=== PATIENT | male | born 1975 | race African-American/Black ===

== ENCOUNTER 2021-10-27 01:36 | Emergency (ER) | payer OTHER, SELFPAY ==
--- OUTSIDE RECORDS SUMMARY | 2021-10-27 01:39 | XMS REPORT | Continuity of Care Document ---
:1975 Author Organization [facility] t Address [address] [place] [address] Care Team Providers Name Role Phone Edinson Rodarte MD Attending Clinician Edinson RODARTE Attending Clinician Unavailable Doctor Unassigned, Name Attending Clinician Unavailable Problems Condition Condition Condition Status Onset Resolution Last Treating Co mments Source Name Details Category Date Date Treatment Clinician Date No known No known Disease Unive rs active active ity of problems problems [facility] Allergies, Adverse Reactions, Alerts Allergy Allergy Status Severity Reaction(s) Onset Inactive Treating Comm ents Source Name Type Date Date Clinician NO KNOWN Drug Active Univers ALLERGIE Class ity of S [facility] Social History Social Habit Start Date Stop Date Quantity Comments Source History SDGA University o f Alcohol Std [facility] History SDOH University o f Alcohol Binge [facility] Tobacco use and 2020-12-26 2020-12-26 Never used Universit y of exposure 00:00:00 00:00:00 [facility] Alcohol intake 2020-12-26 2020-12-26 Lifetime University of 00:00:00 00:00:00 non-drinker [facility] (finding) Branch History SDOH 2020-12-26 2020-12-26 1 University o f Alcohol Frequency 00:00:00 00:00:00 [facility] edical Branch Sex Assigned At [birth year] Universit y of 00:00:00 00:00:00 [facility] Smoking Status Start Date Stop Date Source Unknown if ever smoked Universit y [facility] Never smoker [facility] Medications Ordered Filled Start Stop Current Ordering Indication Dosage Frequency Signature Comments Components Source Medication Medication Date Date Medication? Clinician (SIG) Name Name No known No [facility] No known No Univers medications [facility] No known No Univers medications [facility] No known No Univers medications [facility] Vital Signs Vital Name Observation Time Observation Value Comments Source Systolic blood 2020-12-26 13:41:00 130 mm[Hg] Univer sity [facility] pressure [facility] Diastolic blood 2020-12-26 13:41:00 84 mm[Hg] [facility] 2020-12-26 13:41:00 73 /min Universi ty [facility] Body height 2020-12-26 13:41:00 172.7 cm Universi ty [facility] Body weight 2020-12-26 13:41:00 [facility] BMI 2020-12-26 13:41:00 36.49 kg/m2 [facility] Procedures Procedure Date / Time Performed Performing Clinician [facility] e REFERRAL- 2020-12-23 05:01:00 Doctor Katarina, No [facility] REQUEST/RESPONSE Name [facility] Encounters Start End Encounter Admission Attending Care Care Encounter Source Date/Time Date/Time Type Type Clinicians Facility Department ID 2020-12-31 2020-12-31 Telephone [place] [facility] [id number] Univers 00:00:00 00:00:00 [facility] [id number] it y of Surgical [id number] Aaron as Specialti [id number] [facility] 2020-12-26 2020-12-26 Office [place] [facility] [id number] Univers 08:28:46 09:09:24 Visit Kirit [facility] [id number] it y of Surgical [id number] Aaron as Specialti [id number] [facility] 2020-12-26 2020-12-26 [facility] [id number] Univers 08:30:00 08:30:00 KIRITGILLIAN bowser [facility] 2020-12-23 2020-12-23 Orders Doctor DIANA [id number] Univers 00:00:00 00:00:00 Only Unassigned, JAVI [id number] ity of [place] [facility] [id number] Aaron as [id number] [facility] 009 Branch Results This patient has no known results.
[2021-10-27 02:14] LABS: Absolute Lymphocytes (CBC) 2.4 K/uL (0.7-4.9); Lymphocytes % 30.6 % (15.3-44.8); MPV 11.3 fL (7.6-11.3); RBC Red Blood Cell Count 5.06 M/uL (4.33-5.43)
[2021-10-27 02:34] LABS: Potassium 4.1 mmol/L (3.5-5.1); Troponin High Sensitivity 12.2 pg/mL (<58.9)
[2021-10-27] MEDS ORDERED: MORPHINE 4 MG/ML SYR ONE (03:17)
[2021-10-27] MEDS ORDERED: NA CHLORIDE 0.9% 1,000 ML ONE (03:17)
[2021-10-27] MEDS ORDERED: ONDANSETRON 4 MG/2 ML VIAL ONE (03:17)
[2021-10-27 06:04] LABS: Urine Blood Negative (Negative); Urine Glucose Negative (Negative); Urine Protein Negative (Negative); Urine Specific Gravity 1.025 (1.005-1.030)
[2021-10-27] MEDS ORDERED: DIAZEPAM 5 MG TABLET ONE (06:29)
[2021-10-27 07:26] LABS: Barbiturates NEGATIVE (NEGATIVE); Benzodiazepines NEGATIVE (NEGATIVE); Cocaine NEGATIVE (NEGATIVE); METHAMPHETAM NEGATIVE (NEGATIVE); Methadone NEGATIVE (NEGATIVE); Opiates NEGATIVE (NEGATIVE); Phencyclidine NEGATIVE (NEGATIVE); THC Cannibis NEGATIVE (NEGATIVE)
--- NOTE | 2021-10-27 08:31 | EDPHYS ---
Physician Documentation [facility] Name: Ricky Mercer Jr Age: 46 yrs Sex: Male : 1975 Arrival Date: 10/27/2021 Time: 01:38 Bed 5 Private MD: ED Physician Michael Ramirez HPI: 10/27 02:30 This 46 yrs old Black Male presents to ER via EMS with complaints of Flank Pain. mh7 02:30 The patient complains of pain in the left low back and right low back. The pain mh7 radiates to the abdomen. Onset: The symptoms/episode began/occurred 2 day(s) ago. Modifying factors: The symptoms are alleviated by nothing. the symptoms are aggravated by movement, palpation/percussion. Associated signs and symptoms: Pertinent negatives: diarrhea, dizziness, dysuria, fever, urinary frequency, headache, hematuria, nausea, pain radiating to the lower extremities, vomiting. Severity of pain: At its worst the pain was moderate in the emergency department the pain has improved moderately. Historical: - Allergies: 01:40 Rocephin; jb4 - PMHx: 01:40 None; jb4 - PSHx: 01:40 None; jb4 - Immunization history:: Adult Immunizations unknown. - Social history:: Smoking status: unknown. ROS: 02:30 Constitutional: Negative for fever, chills, and weight loss, Eyes: Negative for injury, mh7 pain, redness, and discharge, ENT: Negative for injury, pain, and discharge, Neck: Negative for injury, pain, and swelling, Cardiovascular: Negative for chest pain, palpitations, and edema, Respiratory: Negative for shortness of breath, cough, wheezing, and pleuritic chest pain, : Negative for injury, bleeding, discharge, and swelling, MS/Extremity: Negative for injury and deformity, Skin: Negative for injury, rash, and discoloration, Neuro: Negative for headache, weakness, numbness, tingling, and seizure, Psych: Negative for depression, anxiety, suicide ideation, homicidal ideation, and hallucinations, Allergy/Immunology: Negative for hives, rash, and allergies, Endocrine: Negative for neck swelling, polydipsia, polyuria, polyphagia, and marked weight changes, Hematologic/Lymphatic: Negative for swollen nodes, abnormal bleeding, and unusual bruising. Exam: 02:30 Head/Face: Normocephalic, atraumatic. Eyes: Pupils equal round and reactive to light, mh7 extra-ocular motions intact. Lids and lashes normal. Conjunctiva and sclera are non-icteric and not injected. Cornea within normal limits. Periorbital areas with no swelling, redness, or edema. Neck: Trachea midline, no thyromegaly or masses palpated, and no cervical lymphadenopathy. Supple, full range of motion without nuchal rigidity, or vertebral point tenderness. No Meningismus. Chest/axilla: Normal chest wall appearance and motion. Nontender with no deformity. No lesions are appreciated. Cardiovascular: Regular rate and rhythm with a normal S1 and S2. No gallops, murmurs, or rubs. Normal PMI, no JVD. No pulse deficits. Respiratory: Lungs have equal breath sounds bilaterally, clear to auscultation and percussion. No rales, rhonchi or wheezes noted. No increased work of breathing, no retractions or nasal flaring. 02:30 Skin: Warm, dry with normal turgor. Normal color with no rashes, no lesions, and no evidence of cellulitis. MS/ Extremity: Pulses equal, no cyanosis. Neurovascular intact. Full, normal range of motion. 02:30 Psych: Awake, alert, with orientation to person, place and time. Behavior, mood, and affect are within normal limits. 02:30 Constitutional: The patient appears in no acute distress, alert, awake, uncomfortable. 02:30 Abdomen/GI: Inspection: abdomen appears normal, Bowel sounds: normal, in all quadrants, Palpation: moderate abdominal tenderness, in the posterior aspect of left lateral abdomen and posterior aspect of right lateral abdomen, mass, is not appreciated, rebound tenderness, is not appreciated, voluntary guarding, is not appreciated, involuntary guarding, is not appreciated, no appreciated organomegaly, Rectal exam: the exam is deferred, because of patient request, Indicators: McBurney's point is not tender, Rosales's sign is negative, Rovsing's sign is negative, Obturator sign is negative, Psoas sign is negative, Liver: no appreciated palpable abnormalities, Hernia: not appreciated. 02:30 Back: normal spinal alignment noted, CVA tenderness, that is moderate, is noted bilaterally, vertebral tenderness, is not appreciated, muscle spasm, is appreciated in the left low back and right low back, Straight leg raises: right lower extremity illicits pain, at 45 degrees. 02:30 Neuro: Orientation: is normal, Mentation: is normal, Memory: is normal, Cranial nerves: grossly normal, Cerebellar function: is grossly normal, Motor: is normal, Sensation: is normal, Gait: not tested. seizure activity, is not displayed by the patient, Abnormal movements: there are no abnormal movements. Vital Signs: 02:07 BP 160 / 90; Pulse 62; Resp 18; Temp 98.9(O); Pulse Ox 97% on R/A; Weight 106.59 kg lp1 (R); Height 5 ft. 8 in. (172.72 cm); Pain 10/10; 02:30 BP 139 / 83; Pulse 64; Resp 16; Pulse Ox 100% on R/A; sm5 03:30 BP 124 / 73; Pulse 67; Resp 16; Pulse Ox 100% on R/A; sm5 06:48 BP 131 / 73; Pulse 58; Resp 18; Pulse Ox 100% on R/A; sm5 07:15 BP 121 / 66; Pulse 61; Pulse Ox 100% ; ap3 08:42 BP 126 / 70; Pulse 65; Resp 17; Pulse Ox 100% ; Pain 4/10; jh6 02:07 Body Mass Index 35.73 (106.59 kg, 172.72 cm) lp1 MDM: 08:29 Differential diagnosis: nephrolithiasis, pyelonephritis, UTI, diverticulitis. Data [facility] reviewed: vital signs, nurses notes, lab test result(s), cardiac enzymes, CBC, electrolytes, EKG, radiologic studies, CT scan, plain films. Data interpreted: Pulse oximetry: on room air is 100 %. Interpretation: normal. Counseling: I had a detailed discussion with the patient and/or guardian regarding: the historical points, exam findings, and any diagnostic results supporting the discharge/admit diagnosis, lab results, radiology results, to return to the emergency department if symptoms worsen or persist or if there are any questions or concerns that arise at home. Response to treatment: the patient's symptoms have resolved after treatment, the patient's blood pressure is in an acceptable range, mental status has returned to baseline, the patient no longer shows bradycardia, the patient is not short of breath, the patient is not tachycardic, the patient's pain is gone, the patient's temperature has normalized. 08:31 Patient medically screened. [facility] 10/27 01:46 Order name: Basic Metabolic Panel; Complete Time: 02:46 [facility] 10/27 01:46 Order name: CBC with Diff; Complete Time: 02:46 [facility] 10/27 01:46 Order name: Troponin HS; Complete Time: 02:46 [facility] 10/27 02:53 Order name: UDS; Complete Time: 07:37 [facility] 10/27 06:05 Order name: Urine Dipstick-Ancillary; Complete Time: 06:05 EDMS 10/27 06:05 Order name: CPK; Complete Time: 07:03 [facility] 10/27 01:46 Order name: XRAY Chest (1 view) [facility] 10/27 01:46 Order name: EKG; Complete Time: 01:46 [facility] 10/27 01:46 Order name: Cardiac monitoring; Complete Time: 02:07 [facility] 10/27 02:54 Order name: CT Abd/Pelvis - Without Contrast [facility] 10/27 01:46 Order name: EKG - Nurse/Tech; Complete Time: 02:24 [facility] 10/27 01:46 Order name: IV Saline Lock; Complete Time: 01:56 [facility] 10/27 01:46 Order name: Labs collected and sent; Complete Time: 01:56 [facility] 10/27 01:46 Order name: O2 Per Protocol; Complete Time: 02:07 [facility] 10/27 01:46 Order name: O2 Sat Monitoring; Complete Time: 02:07 [facility] 10/27 02:53 Order name: Urine Dipstick-Ancillary (obtain specimen); Complete Time: 06:06 [facility] Administered Medications: 03:19 Drug: Zofran (Ondansetron) 4 mg Route: IVP; Site: left antecubital; ke1 06:47 Follow up: Response: No adverse reaction [facility] 03:20 Drug: NS 0.9% 1000 ml Route: IV; Rate: 1000 ml; Site: left antecubital; ke1 04:15 Follow up: IV Status: Completed infusion; IV Intake: 1000ml [facility] 03:20 Drug: morphine 4 mg Route: IVP; Infused Over: 4 mins; Site: left antecubital; ke1 06:47 Follow up: Response: No adverse reaction sm5 06:25 Drug: Valium (diazepam) 5 mg Route: PO; [facility] 07:59 Follow up: Response: No adverse reaction ap3 Disposition Summary: 10/27/21 08:31 Discharge Ordered Location: Home [facility] Problem: an acute exacerbation [facility] Symptoms: have improved [facility] Condition: Stable [facility] Diagnosis - Low back pain - Flank Pain [facility] Followup: [facility] - With: Private Physician - When: 1 - 2 days - Reason: Worsening of condition, Recheck today's complaints, Continuance of care, Re-evaluation by your physician Discharge Instructions: - Discharge Summary Sheet [facility] - Acute Back Pain, Adult [facility] Forms: - Medication Reconciliation Form [facility] - Thank You Letter [facility] - Antibiotic Education [facility] - Prescription Opioid Use [facility] - Work release form 6 Prescriptions: - ketorolac 10 mg Oral tablet - take 1 tablet by ORAL route every 6-8 hours As needed not to exceed 40 mg in [facility] 24hrs; 15 tablet; Refills: 0, Product Selection Permitted - Cyclobenzaprine 10 mg Oral Tablet - take 1 tablet by ORAL route every 8 hours As needed; 30 tablet; Refills: 0, [facility] Product Selection Permitted Signatures: Dispatcher [employer] Abhijit Ratliff RN RN jb4 Michael Ramirez MD MD 7 Destiny Torres RN RN sm5 Nidhi Haynes RN RN ke1 Asia Campbell RN ap3 Corrections: (The following items were deleted from the chart) 01:41 01:40 PSHx: Unable to Obtain; jbYaya jb4
--- NOTE | 2021-10-27 08:31 | ER ---
Nurse's Notes [facility] Name: Ricky Mercer Jr Age: 46 yrs Sex: Male : 1975 Arrival Date: 10/27/2021 Time: 01:38 Bed 5 Private MD: Diagnosis: Low back pain-Flank Pain Presentation: 10/27 01:38 Chief complaint: EMS states: Pt reports that at 5am yesterday he started having NATHANAEL jb4 flank pain, later on he developed chest pain. Reports the flank pain is substantially worse than chest pain. He was given 324 ASA, 1 0.4mg nitroglycerin, and 10mg of toradol. He has an 18g to the LAC. Coronavirus screen: At this time, the client does not indicate any symptoms associated with coronavirus-19. Ebola Screen: No symptoms or risks identified at this time. Initial Sepsis Screen: Does the patient meet any 2 criteria? No. Patient's initial sepsis screen is negative. Does the patient have a suspected source of infection? No. Patient's initial sepsis screen is negative. Risk Assessment: Do you want to hurt yourself or someone else? Patient reports no desire to harm self or others. Onset of symptoms was October 26, 2021. Transition of care: patient was not received from another setting of care. 01:38 Method Of Arrival: EMS: [facility] jb4 01:38 Acuity: LIZA 3 jb4 Historical: - Allergies: 01:40 Rocephin; jb4 - PMHx: 01:40 None; jb4 - PSHx: 01:40 None; jb4 - Immunization history:: Adult Immunizations unknown. - Social history:: Smoking status: unknown. Screenin:25 Abuse screen: Denies threats or abuse. Denies injuries from another. Nutritional sm5 screening: No deficits noted. Tuberculosis screening: No symptoms or risk factors identified. Fall Risk None identified. Assessment: 02:24 General: Appears uncomfortable, Behavior is cooperative. Pain: Complains of pain in sm5 chest and bilateral flank. Neuro: No deficits noted. Meeks Agitation-Sedation Scale (RASS): +1 Restless Level of Consciousness is awake, alert, obeys commands, Oriented to person, place, time, situation. Cardiovascular: No deficits noted. Capillary refill < 3 seconds Patient's skin is warm and dry. Rhythm is sinus rhythm. Respiratory: No deficits noted. Airway is patent Trachea midline Respiratory effort is even, unlabored. 03:30 Reassessment: No changes from previously documented assessment. Patient and/or family sm5 updated on plan of care and expected duration. Pain level reassessed. 04:30 Reassessment: No changes from previously documented assessment. Patient and/or family sm5 updated on plan of care and expected duration. Pain level reassessed. Patient is alert, oriented x 3, equal unlabored respirations, skin warm/dry/pink. 05:30 Reassessment: No changes from previously documented assessment. sm5 06:46 Reassessment: Patient and/or family updated on plan of care and expected duration. Pain sm5 level reassessed. 07:38 Reassessment: Patient is alert, oriented x 3, equal unlabored respirations, skin jh6 warm/dry/pink. pt able to ambulate to bathroom without assistance. Vital Signs: 02:07 BP 160 / 90; Pulse 62; Resp 18; Temp 98.9(O); Pulse Ox 97% on R/A; Weight 106.59 kg lp1 (R); Height 5 ft. 8 in. (172.72 cm); Pain 10/10; 02:30 BP 139 / 83; Pulse 64; Resp 16; Pulse Ox 100% on R/A; sm5 03:30 BP 124 / 73; Pulse 67; Resp 16; Pulse Ox 100% on R/A; sm5 06:48 BP 131 / 73; Pulse 58; Resp 18; Pulse Ox 100% on R/A; sm5 07:15 BP 121 / 66; Pulse 61; Pulse Ox 100% ; ap3 08:42 BP 126 / 70; Pulse 65; Resp 17; Pulse Ox 100% ; Pain 4/10; jh6 02:07 Body Mass Index 35.73 (106.59 kg, 172.72 cm) lp1 ED Course: 01:38 Patient arrived in ED. jb4 01:40 Triage completed. jb4 01:40 Arm band placed on right wrist. jb4 02:06 Destiny Torres, RN is Primary Nurse. sm5 02:07 Basic Metabolic Panel Sent. sm5 02:07 CBC with Diff Sent. sm5 02:07 Troponin HS Sent. sm5 02:22 XRAY Chest (1 view) In Process Unspecified. EDMS 02:24 Maintain EMS IV. Dressing intact. Good blood return noted. Site clean \T\ dry. Gauge \T\ sm 5 site: 20G LAC. 02:25 Michael Ramirez MD is Attending Physician. [facility] 02:25 Patient has correct armband on for positive identification. Bed in low position. Call 5 light in reach. Side rails up X2. Client placed on continuous cardiac and pulse oximetry monitoring. NIBP monitoring applied. 03:53 CT Abd/Pelvis - Without Contrast In Process Unspecified. EDMS 08:35 IV discontinued, intact, bleeding controlled, No redness/swelling at site. Pressure 6 dressing applied. 08:35 No provider procedures requiring assistance completed. 6 Administered Medications: 03:19 Drug: Zofran (Ondansetron) 4 mg Route: IVP; Site: left antecubital; ke1 06:47 Follow up: Response: No adverse reaction 5 03:20 Drug: NS 0.9% 1000 ml Route: IV; Rate: 1000 ml; Site: left antecubital; ke1 04:15 Follow up: IV Status: Completed infusion; IV Intake: 1000ml 5 03:20 Drug: morphine 4 mg Route: IVP; Infused Over: 4 mins; Site: left antecubital; ke1 06:47 Follow up: Response: No adverse reaction 5 06:25 Drug: Valium (diazepam) 5 mg Route: PO; sm5 07:59 Follow up: Response: No adverse reaction ap3 Medication: 02:25 VIS not applicable for this client. 5 Intake: 04:15 IV: 1000ml; Total: 1000ml. 5 Outcome: 08:31 Discharge ordered by . [facility] 08:43 Discharged to home ambulatory. [facility] 08:43 Condition: improved 08:43 Discharge instructions given to patient, Instructed on discharge instructions, Demonstrated understanding of instructions, medications, Prescriptions given X 2. 08:44 Patient left the ED. [facility] Signatures: Dispatcher [employer] EDMS Azra George, RN RN lp1 Abhijit Grimes, RN RN jb4 Asia Campbell RN RN ap3 Michael Ramirez MD MD mh7 Hastedt, Jennifer RN RN 6 Destiny Torres RN RN 5 Nidhi Haynes, RN RN ke1 Corrections: (The following items were deleted from the chart) 01:41 01:40 PSHx: Unable to Obtain; jb4 jb4
[2021-10-27 09:05] VITALS: TEMP 98.9
[2021-10-27 09:06] VITALS: O2SAT 100
[2021-10-27 09:12] VITALS: BP 126/70
--- NOTE | 2021-10-27 12:17 | EKG ---
Test Date: 2021-10-27 Test Time: 02:18:17 Chemical Weigher: KYLE MEASUREMENT RESULTS: Intervals: Rate: 62 OH: 148 QRSD: 72 QT: 356 QTc: 361 [place]: P: 52 OH: 148 QRS: 18 T: -13 INTERPRETIVE STATEMENTS: Normal sinus rhythm Normal ECG Compared to ECG 10/27/2007 21:00:43 T-wave abnormality no longer present Electronically Signed On 10-27-21 12:16:28 CDT by Sebastián Medina
--- NOTE | 2021-10-27 13:14 | RAD REPORT ---
EXAM DESCRIPTION: CT - Abdomen Pelvis Wo Contrast - 10/27/2021 6:43 am CLINICAL HISTORY: Flank pain, kidney stone suspected COMPARISON: None Available. TECHNIQUE: CT of the abdomen and pelvis without IV contrast. Evaluation of the solid organs and vasc ulature is suboptimal due to lack of IV contrast. This exam was performed according to our department al dose-optimization program, which includes automated exposure control, adjustment of the mA and/or kV according to patient size and/or use of iterative reconstruction technique. FINDINGS: Lung Bases: The visualized lung bases are clear. Bones: Minimal endplate spondylosis. Abdomen: Liver: The liver has normal size and density. Gallbladder: No calcified gallstones. Spleen, Pancreas, and Adrenal Glands: The spleen, pancreas, and adrenal glands are unremarkable. Kidneys: Mild right hydronephrosis without ureteral calculus identified. No left-sided hydronephrosis . Vasculature: Aortoiliac atherosclerosis. Stomach: The stomach and duodenum have normal course. Other: No free intraperitoneal air. No free fluid or lymphadenopathy. Pelvis: Bladder: Urinary bladder is unremarkable. Bowel: No dilated loops of large or small bowel. Scattered diverticula of the colon. Appendix: Normal appendix. Pelvis: Prostate is not enlarged. IMPRESSION: 1. Mild right hydronephrosis without ureteral calculus identified. This may be related to recently passed right ureteral calculus. 2. Diverticulosis without evidence of acute diverticulitis. Electronically signed by: Fredy Vasques 10/27/2021 4:14 AM CDT Due to temporary technical issues with the PACS/Fluency reporting system, reports are being signed by the in house radiologist without review as a courtesy to ensure prompt reporting. The interpreting r adiologist is fully responsible for the content of the report.
--- NOTE | 2021-10-27 13:17 | RAD REPORT ---
EXAM DESCRIPTION: RAD - Chest Single View - 10/27/2021 2:20 am CLINICAL HISTORY: CHEST PAIN COMPARISON: None. FINDINGS: Single frontal radiograph view of the chest. Cardiomediastinal silhouette: Normal size and contour. Lungs: No consolidation, pneumothorax, or pleural effusion. Low lung volumes. Bones: No acute osseous abnormality. Leads overlie the chest. Upper abdomen: No abnormality identified. IMPRESSION: 1. No acute pulmonary process identified. Electronically signed by: Fredy Vasques 10/27/2021 2:29 AM CDT Due to temporary technical issues with the PACS/Fluency reporting system, reports are being signed by the in house radiologist without review as a courtesy to ensure prompt reporting. The interpreting r adiologist is fully responsible for the content of the report.
== END 2021-10-27 08:44 | disposition home or self-care (01) ==
LOC: ER 01:36
DX: M54.50 Low back pain, unspecified (principal); R10.9 Unspecified abdominal pain; Z88.1 Allergy status to other antibiotic agents
CPT/HCPCS: 36415; 71045; 74176; 80048; 80307; 81003; 82550; 84484; 85025; 93005; 96361; 96374; 96375; 99284; J2405; J7030

== ENCOUNTER 2021-12-18 04:52 | Inpatient (IN) | payer SELFPAY ==
--- OUTSIDE RECORDS SUMMARY | 2021-12-18 04:55 | XMS REPORT | Continuity of Care Document ---
:1975 Author Organization [facility] t Address [address] [place] [address] Care Team Providers Name Role Phone Edinson Rodarte MD Attending Clinician Edinson RODARTE Attending Clinician Unavailable Doctor Unassigned, Name Attending Clinician Unavailable Problems Condition Condition Condition Status Onset Resolution Last Treating Co mments Source Name Details Category Date Date Treatment Clinician Date No known No known Disease Unive rs active active ity of problems problems [facility] Allergies, Adverse Reactions, Alerts Allergy Allergy Status Severity Reaction(s) Onset Inactive Treating Comm ents Source Name Type Date Date Clinician NO KNOWN Drug Active Univers ALLERGIE Class ity of [facility] Social History Social Habit Start Date Stop Date Quantity Comments Source History SDIL University o f Alcohol Std [facility] History SDOH University o f Alcohol Binge [facility] Tobacco use and 2020-12-26 2020-12-26 Never used Universit y of exposure 00:00:00 00:00:00 [facility] Alcohol intake 2020-12-26 2020-12-26 Lifetime University of 00:00:00 00:00:00 non-drinker [facility] (finding) [facility] History SDOH 2020-12-26 2020-12-26 1 University o f Alcohol Frequency 00:00:00 00:00:00 [facility] Sex Assigned At [birth year] Universit y of 00:00:00 00:00:00 [facility] Smoking Status Start Date Stop Date Source Unknown if ever smoked Universit y [facility] Never smoker [facility] Medications Ordered Filled Start Stop Current Ordering Indication Dosage Frequency Signature Comments Components Source Medication Medication Date Date Medication? Clinician (SIG) Name Name No known No [facility] No known No [facility] medications [facility] No known No [facility] No known No Univers medications [facility] Vital Signs Vital Name Observation Time Observation Value Comments Source Systolic blood 2020-12-26 13:41:00 130 mm[Hg] Univer sity [facility] Diastolic blood 2020-12-26 13:41:00 84 [facility]Hg[facility] 2020-12-26 13:41:00 73 /min Universi [facility] Body height 2020-12-26 13:41:00 [facility] Body weight 2020-12-26 13:41:00 108.863 kg [facility] BMI 2020-12-26 13:41:00 36.49 kg/m2 [facility] Procedures Procedure Date / Time Performed Performing Clinician [facility] e REFERRAL- 2020-12-23 05:01:00 Doctor Unassyarely, [facility] REQUEST/RESPONSE Name [place] [facility] Encounters Start End Encounter Admission Attending Care Care Encounter Source Date/Time Date/Time Type Type Clinicians Facility Department ID 2020-12-31 2020-12-31 [facility] [id number] Univers 00:00:00 00:00:00 [facility] [id number] it y of Surgical [id number] Aaron as Specialti [id number] Ak dicnv es [address] [place] [address] 2020-12-26 2020-12-26 [facility] [id number] Univers 08:28:46 09:09:24 Visit [facility] [id number] it y of Surgical [id number] Aaron as Specialti [id number] Ak dical es [address] [facility] 2020-12-26 2020-12-26 [facility] [id number] Univers 08:30:00 08:30:00 [facility] 2020-12-23 2020-12-23 Orders Doctor DIANA [id number] Univers 00:00:00 00:00:00 Only Unassigned, JAVI [id number] ity of [place] [facility] [id number] Aaron as [id number] [facility] 009 Branch Results This patient has no known results.
[2021-12-18] MEDS ORDERED: ONDANSETRON 4 MG/2 ML VIAL ONE (05:31)
[2021-12-18] MEDS ORDERED: FAMOTIDINE 20 MG/2 ML VIAL IV ONE (05:32)
[2021-12-18 05:44] LABS: Absolute Lymphocytes (CBC) 1.3 K/uL (0.7-4.9); Lymphocytes % 11.5 % (15.3-44.8); MCV 83.9 fL (80-100); MPV 11.1 fL (7.6-11.3); RBC Red Blood Cell Count 5.12 M/uL (4.33-5.43)
[2021-12-18 06:01] LABS: Albumin 3.6 g/dL (3.4-5.0); Bilirubin Total 0.3 mg/dL (0.2-1.0); Potassium 4.1 mmol/L (3.5-5.1); Protein, Total 7.6 g/dL (6.4-8.2)
[2021-12-18] MEDS ORDERED: MORPHINE 4 MG/ML SYR ONE ×2 (07:22→11:14)
[2021-12-18 07:35] LABS: Urine Blood Negative (Negative); Urine Glucose Negative (Negative); Urine Protein Negative (Negative); Urine Specific Gravity 1.015 (1.005-1.030)
[2021-12-18 07:49] LABS: Urine Bacteria None Seen /HPF (<20); Urine RBC <5 /HPF (None Seen)
--- NOTE | 2021-12-18 10:47 | EDPHYS ---
Physician Documentation [facility] Name: Ricky Mercer Jr Age: 46 yrs Sex: Male : 1975 Arrival Date: 12/18/2021 Time: 04:55 Bed 13 Private MD: ED Physician Ranjan Garcia HPI: 12/18 05:22 This 46 yrs old Black Male presents to ER via Ambulatory with complaints of Abdominal ms3 Pain. 05:22 46-year-old male with no past medical history presents for lower abdominal pain that ms3 has been ongoing for 5 hours prior to arrival. Patient rates his pain a 10/10 and describes the pain as stabbing. Patient states the pain is better after burping. Patient denies inciting factors. Patient denies nausea, vomiting, diarrhea, fevers, chills.. Historical: - Allergies: 05:11 Rocephin; ke1 - PMHx: 05:12 None; ke1 - Immunization history:: Client reports having NOT received the Covid vaccine. - Social history:: Smoking status: Patient reports the use of cigarette tobacco products, denies chronic smoking, but will smoke occasionally. ROS: 05:22 Constitutional: Negative for fever, and chills. Neck: Negative for injury, pain, and ms3 swelling, Cardiovascular: Negative for chest pain, and palpitations. Respiratory: Negative for shortness of breath, cough, wheezing, and pleuritic chest pain, MS/Extremity: Negative for injury and deformity, Skin: Negative for injury, rash, and discoloration. 05:22 Abdomen/GI: Positive for abdominal pain, Negative for nausea, vomiting, and diarrhea. 05:22 All other systems are negative. Exam: 05:22 Constitutional: This is a well developed, well nourished patient who is awake, alert, ms3 and in no acute distress. Head/Face: Normocephalic, atraumatic. Neck: Trachea midline, no cervical lymphadenopathy. Supple, full range of motion without nuchal rigidity, or vertebral point tenderness. No Meningismus. Chest/axilla: Normal chest wall appearance and motion. Nontender with no deformity. Cardiovascular: Regular rate and rhythm with a normal S1 and S2. No gallops, murmurs, or rubs. Normal PMI, no JVD. No pulse deficits. Respiratory: Lungs have equal breath sounds bilaterally, clear to auscultation and percussion. No rales, rhonchi or wheezes noted. No increased work of breathing, no retractions or nasal flaring. 05:22 Skin: Warm, dry with normal turgor. Normal color with no rashes, no lesions, and no evidence of cellulitis. Psych: Awake, alert, with orientation to person, place and time. Behavior, mood, and affect are within normal limits. 05:22 Abdomen/GI: Inspection: abdomen appears normal, Bowel sounds: normal, Palpation: severe abdominal tenderness, in the right lower quadrant and left lower quadrant. Vital Signs: 05:09 BP 159 / 93; Pulse 89; Resp 24; Temp 99.4; Pulse Ox 99% on R/A; Weight 108.86 kg; ke1 Height 5 ft. 8 in. (172.72 cm); Pain 10/10; 05:57 BP 141 / 87; Pulse 89; Resp 16; Pulse Ox 100% on R/A; Pain 6/10; ke1 07:15 BP 140 / 86; Pulse 83; Resp 16; Pulse Ox 100% on R/A; Pain 10/10; em6 08:00 BP 123 / 68; Pulse 64; Resp 16; Pulse Ox 99% on R/A; em6 09:00 BP 125 / 81; Pulse 67; Resp 14; Pulse Ox 100% on R/A; em6 10:00 BP 120 / 78; Pulse 63; Resp 14; Temp 98.2; Pulse Ox 100% on R/A; em6 11:10 BP 128 / 78; Pulse 72; Resp 16; Temp 98.4; Pulse Ox 100% on R/A; Pain 10/10; em6 12:00 BP 129 / 75; Pulse 74; Resp 18; Pulse Ox 100% on R/A; em6 05:09 Body Mass Index 36.49 (108.86 kg, 172.72 cm) ke1 MDM: 05:21 Patient medically screened. ms3 05:22 Differential diagnosis: diverticulitis, non-specific abd pain, urinary tract infection. ms3 10:35 ED course: Contacted Dr. Beard for over-read of CT abdomen, ct earlier showed small rn free fluid, Dr. Beard states does not see evidence of perforation or complication, just diverticulitis. . 10:45 Data reviewed: vital signs, nurses notes, lab test result(s), radiologic studies, CT rn scan, and as a result, I will admit patient. Counseling: I had a detailed discussion with the patient and/or guardian regarding: the historical points, exam findings, and any diagnostic results supporting the discharge/admit diagnosis, lab results, radiology results, the need for further work-up and treatment in the hospital. Response to treatment: the patient's symptoms have mildly improved after treatment, and as a result, I will admit patient. Admission orders: after a detailed discussion of the patient's condition and case, the admit orders are written by me. 10:46 ED course: Pt still uncomfortable, will admit for further care. . rn 12/18 05:21 Order name: CBC with Diff; Complete Time: 06:42 ms3 12/18 05:21 Order name: CMP; Complete Time: 06:42 ms3 12/18 05:21 Order name: Lipase; Complete Time: 06:42 ms3 12/18 05:21 Order name: Urine Microscopic Only; Complete Time: 07:53 ms3 12/18 07:36 Order name: Urine Dipstick-Ancillary; Complete Time: 07:53 EDMS 12/18 10:52 Order name: SARS RAPID; Complete Time: 11:45 bd 12/18 05:21 Order name: CT Abd/Pelvis - IV Contrast Only; Complete Time: 11:45 ms3 12/18 05:21 Order name: IV Saline Lock; Complete Time: 05:36 ms3 12/18 05:21 Order name: Labs collected and sent; Complete Time: 05:36 ms3 12/18 05:21 Order name: Urine Dipstick-Ancillary (obtain specimen); Complete Time: 07:38 ms3 Administered Medications: 05:36 Drug: Pepcid (famotidine) 20 mg Route: IVP; Site: right antecubital; ke1 05:56 Follow up: Response: No adverse reaction ke1 05:36 Drug: Zofran (Ondansetron) 4 mg Route: IVP; Site: right antecubital; ke1 05:56 Follow up: Response: No adverse reaction ke1 07:15 Drug: morphine 4 mg Route: IVP; Infused Over: 4 mins; Site: right antecubital; em6 08:15 Follow up: Response: No adverse reaction; RASS: Alert and Calm (0) em6 11:04 Drug: Flagyl (metroNIDAZOLE) 500 mg Volume: 100 ml; Route: IVPB; Rate: 200 ml/hr; em6 Infused Over: 30 mins; Site: right antecubital; 11:50 Follow up: Response: No adverse reaction; IV Status: Completed infusion; IV Intake: em6 500ml 11:18 Drug: morphine 4 mg Route: IVP; Infused Over: 4 mins; Site: right antecubital; em6 12:18 Follow up: Response: No adverse reaction; RASS: Alert and Calm (0) em6 11:45 Drug: Cipro (ciprofloxacin) 400 mg Volume: 200 ml; Route: IVPB; Infused Over: 60 mins; em6 Site: right antecubital; 12:46 Follow up: Response: No adverse reaction; IV Status: Completed infusion; IV Intake: em6 400ml Disposition Summary: 12/18/21 10:46 Hospitalization Ordered Hospitalization Status: Observation rn Provider: Marquise Martinez [facility]n [facility] Condition: Stable rn Problem: new rn Symptoms: are unchanged rn Bed/Room Type: Standard rn Room Assignment: 214(12/18/21 11:56) dw Diagnosis - Diverticulitis of intestine, part unspecified, without perforation or abscess rn without bleeding Forms: - Medication Reconciliation Form rn - SBAR form rn Signatures: Dispatcher [employer] Johana New RN RN Ranjan Webb MD MD rn Sims, Marcus, DO DO ms3 Nidhi Haynes RN RN ke1 Kate Sharma RN RN em6 Corrections: (The following items were deleted from the chart) 11:56 10:46 rn starr
--- NOTE | 2021-12-18 10:47 | ER ---
Nurse's Notes [facility] Name: Ricky Mercer Jr Age: 46 yrs Sex: Male : 1975 Arrival Date: 12/18/2021 Time: 04:55 Bed 13 Private MD: Diagnosis: Diverticulitis of intestine, part unspecified, without perforation or abscess without bleeding Presentation: 12/18 05:09 Chief complaint: Patient states: Woke up with Lower abdominal pain started about 5 ke1 hours ago. Coronavirus screen: Vaccine status: Patient reports being unvaccinated. Ebola Screen: No symptoms or risks identified at this time. Initial Sepsis Screen: Does the patient meet any 2 criteria? No. Patient's initial sepsis screen is negative. Does the patient have a suspected source of infection? No. Patient's initial sepsis screen is negative. Risk Assessment: Do you want to hurt yourself or someone else? Patient reports no desire to harm self or others. Onset of symptoms was December 18, 2021 at 00:00. 05:09 Method Of Arrival: Ambulatory ke1 05:09 Acuity: LIZA 3 ke1 Triage Assessment: 05:13 General: Appears distressed, Behavior is. Pain: Complains of pain in lower abdomen. ke1 Pain: Pain does not radiate. Pain currently is 10 out of 10 on a pain scale. at worst was 10 out of 10 on a pain scale. level that patient reports is acceptable is 2 out of 10 on a pain scale. Quality of pain is described as stabbing. GI: Abdomen is round non-distended, Abd is soft Abdomen is tender to palpation in right lower quadrant and left lower quadrant. Historical: - Allergies: 05:11 Rocephin; ke1 - PMHx: 05:12 None; ke1 - Immunization history:: Client reports having NOT received the Covid vaccine. - Social history:: Smoking status: Patient reports the use of cigarette tobacco products, denies chronic smoking, but will smoke occasionally. Screenin:13 Abuse screen: Denies threats or abuse. Nutritional screening: No deficits noted. ke1 Tuberculosis screening: No symptoms or risk factors identified. Fall Risk None identified. Assessment: 05:16 Reassessment: see triage. ke1 05:37 GI: Bowel sounds hypoactive in right upper quadrant, left upper quadrant, right lower ke1 quadrant and left lower quadrant. 05:56 Reassessment: Patient appears in no apparent distress at this time. Patient is alert, ke1 oriented x 3, equal unlabored respirations, skin warm/dry/pink. Patient states symptoms have improved. 07:15 Reassessment: Patient appears in no apparent distress at this time. Patient is alert, em6 oriented x 3, equal unlabored respirations, skin warm/dry/pink. General: Appears in no apparent distress. comfortable, Behavior is calm, cooperative. Pain: Complains of pain in lower abdomen/upper pubic area Pain does not radiate. Pain currently is 10 out of 10 on a pain scale. Quality of pain is described as sharp, stabbing, Pain began suddenly. Neuro: Meeks Agitation-Sedation Scale (RASS): 0 - Alert and Calm. Cardiovascular: Heart tones present Capillary refill < 3 seconds Patient's skin is warm and dry. Respiratory: Airway is patent Respiratory effort is even, unlabored, Respiratory pattern is regular, symmetrical, Breath sounds are clear bilaterally. GI: Abdomen is non-distended, Bowel sounds present X 4 quads. Abd is non tender Reports lower abdominal pain. : No signs and/or symptoms were reported regarding the genitourinary system. EENT: No signs and/or symptoms were reported regarding the EENT system. Derm: No signs and/or symptoms reported regarding the dermatologic system. Musculoskeletal: No signs and/or symptoms reported regarding the musculoskeletal system. Circulation, motion, and sensation intact. 08:15 Reassessment: Patient appears in no apparent distress at this time. patient has eyes em6 closed. even and unlabored respirations noted. call atkinson on reach and bed on low position. 09:15 Reassessment: Patient appears in no apparent distress at this time. No changes from em6 previously documented assessment. 10:11 Reassessment: Patient appears in no apparent distress at this time. No changes from em6 previously documented assessment. 11:19 Reassessment: Patient appears in no apparent distress at this time. Patient is alert, em6 oriented x 3, equal unlabored respirations, skin warm/dry/pink. Pain: Complains of pain in lower abdomen/ pubic area Pain does not radiate. Pain currently is 10 out of 10 on a pain scale. Quality of pain is described as sharp, stabbing. Pain: Current management is with Morphine. 12:32 Reassessment: Patient appears in no apparent distress at this time. Patient is alert, em6 oriented x 3, equal unlabored respirations, skin warm/dry/pink. . Pain: Complains of pain in lower abdomen/ pubic area Pain does not radiate. Pain currently is 3 out of 10 on a pain scale. Vital Signs: 05:09 BP 159 / 93; Pulse 89; Resp 24; Temp 99.4; Pulse Ox 99% on R/A; Weight 108.86 kg; ke1 Height 5 ft. 8 in. (172.72 cm); Pain 10/10; 05:57 BP 141 / 87; Pulse 89; Resp 16; Pulse Ox 100% on R/A; Pain 6/10; ke1 07:15 BP 140 / 86; Pulse 83; Resp 16; Pulse Ox 100% on R/A; Pain 10/10; em6 08:00 BP 123 / 68; Pulse 64; Resp 16; Pulse Ox 99% on R/A; em6 09:00 BP 125 / 81; Pulse 67; Resp 14; Pulse Ox 100% on R/A; em6 10:00 BP 120 / 78; Pulse 63; Resp 14; Temp 98.2; Pulse Ox 100% on R/A; em6 11:10 BP 128 / 78; Pulse 72; Resp 16; Temp 98.4; Pulse Ox 100% on R/A; Pain 10/10; em6 12:00 BP 129 / 75; Pulse 74; Resp 18; Pulse Ox 100% on R/A; em6 05:09 Body Mass Index 36.49 (108.86 kg, 172.72 cm) ke1 ED Course: 04:55 Patient arrived in ED. ja2 05:07 Callum Roldan DO is Attending Physician. ms3 05:09 Nidhi Haynes, SHIRA is Primary Nurse. ke1 05:11 Triage completed. ke1 05:15 Bed in low position. Call light in reach. ke1 05:36 Arm band placed on. ke1 05:36 Inserted saline lock: 20 gauge in right antecubital area, using aseptic technique. ke1 06:27 CT Abd/Pelvis - IV Contrast Only In Process Unspecified. EDMS 06:58 Attending Physician role handed off by Callum Roldan DO rn 06:58 Ranjan Garcia MD is Attending Physician. rn 07:15 IV is patent, is intact, with fluids infusing freely, with good blood return. em6 09:42 Primary Nurse role handed off by Nidhi Haynes RN jd3 09:42 Robby Barbour RN is Primary Nurse. jd3 10:46 Marquise Martinez MD is Hospitalizing Provider. rn Administered Medications: 05:36 Drug: Pepcid (famotidine) 20 mg Route: IVP; Site: right antecubital; ke1 05:56 Follow up: Response: No adverse reaction ke1 05:36 Drug: Zofran (Ondansetron) 4 mg Route: IVP; Site: right antecubital; ke1 05:56 Follow up: Response: No adverse reaction ke1 07:15 Drug: morphine 4 mg Route: IVP; Infused Over: 4 mins; Site: right antecubital; em6 08:15 Follow up: Response: No adverse reaction; RASS: Alert and Calm (0) em6 11:04 Drug: Flagyl (metroNIDAZOLE) 500 mg Volume: 100 ml; Route: IVPB; Rate: 200 ml/hr; em6 Infused Over: 30 mins; Site: right antecubital; 11:50 Follow up: Response: No adverse reaction; IV Status: Completed infusion; IV Intake: em6 500ml 11:18 Drug: morphine 4 mg Route: IVP; Infused Over: 4 mins; Site: right antecubital; em6 12:18 Follow up: Response: No adverse reaction; RASS: Alert and Calm (0) em6 11:45 Drug: Cipro (ciprofloxacin) 400 mg Volume: 200 ml; Route: IVPB; Infused Over: 60 mins; em6 Site: right antecubital; 12:46 Follow up: Response: No adverse reaction; IV Status: Completed infusion; IV Intake: em6 400ml Medication: 12:56 VIS not applicable for this client. em6 Intake: 11:50 IV: 500ml; Total: 500ml. em6 12:46 IV: 400ml; Total: 900ml. em6 Outcome: 10:46 Decision to Hospitalize by Provider. rn 12:57 Admitted to Med/surg accompanied by tech, via wheelchair, room 214, with chart, Report em6 called to holly SILVA 12:57 Condition: stable 12:57 Instructed on the need for admit. 13:12 Patient left the ED. em6 Signatures: Dispatcher [employer] EDMS Ranjan Garcia MD MD rn Davies, Jonathon, RN RN jd3 Callum Roldan DO DO ms3 Camila Lazo2 Nidhi Haynes RN RN ke1 Kate Sharma RN RN em6 Corrections: (The following items were deleted from the chart) 11:52 11:18 Response: No adverse reaction em6 em6 11:52 11:51 Response: No adverse reaction; RASS: Alert and Calm (0) em6 em6
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
[2021-12-18] MEDS ORDERED: CIPROFLOXACIN 400mg IV 400 MG/200 ML BAG IV ONE (10:56)
[2021-12-18] MEDS ORDERED: METRONIDAZOLE 500mg IVPB 500 MG/100 ML BAG IV ONE (10:56)
--- NOTE | 2021-12-18 11:24 | RAD REPORT ---
EXAM DESCRIPTION: CT - Abdomen Pelvis W Contrast - 12/18/2021 9:45 am CLINICAL HISTORY: 46 years Male Lower abdominal pain TECHNIQUE: CT of the abdomen and pelvis using intravenous contrast. All CT scans at this facility us e dose modulation, iterative reconstruction, and/or weight based dosing when appropriate to reduce ra diation dose to as low as reasonably achievable. COMPARISON: 08/27/2021 FINDINGS: Lower chest: Lung bases are clear. Abdomen/Pelvis: Liver: No focal lesion. Gallbladder: No calcified stone. Pancreas: Within normal limits. Spleen: Within normal limits. Kidney: No hydronephrosis. Tiny left renal cysts. Adrenal glands: Within normal limits. Vascular structures: Unremarkable. Bowel: Diverticulosis of the sigmoid colon with inflammatory changes. No bowel distention. Appendix: Normal. Peritoneum: Small simple free fluid in the pelvis. No free air. Lymph Nodes: No lymphadenopathy. Reproductive: Unremarkable. Urinary bladder: Unremarkable. Osseous structures: Mild multilevel degenerative changes. Soft tissues: Unremarkable. IMPRESSION: Acute sigmoid diverticulitis. Small free fluid in the pelvis. No discrete focal rim-enha ncing fluid collection to suggest drainable abscess formation at this time. No free air. Electronically signed by: Shade Gillis MD 12/18/2021 7:10 AM CDT Due to temporary technical issues with the PACS/Fluency reporting system, reports are being signed by the in house radiologists without review as a courtesy to insure prompt reporting. The interpreting radiologist is fully responsible for the content of the report.
[2021-12-18 11:37] LABS: SARS-CoV-2 Antigen Rapid Res Negative (Negative)
[2021-12-18] MEDS ORDERED: ONDANSETRON 4 MG/2 ML VIAL IV PRN ×2 (12:52→13:00)
[2021-12-18 13:33] VITALS: O2SAT 100
[2021-12-18] MEDS: MORPHINE 2 MG/ML SYR IV PRN ×2 (13:43→17:48)
[2021-12-18] MEDS: Ringers Lactate 1,000 ML IV SCH (13:43)
[2021-12-18 14:45] VITALS: BMI 36.5
[2021-12-18] MEDS: METRONIDAZOLE 500mg IVPB 500 MG/100 ML BAG IV SCH (17:48)
[2021-12-18] MEDS: Ciprofloxacin 200mg IV 200 MG/100 ML IV.SOLN. IV SCH (19:46)
[2021-12-18] MEDS ORDERED: KETOROLAC 30 MG/ML INJ IV ONE (21:04)
[2021-12-19] MEDS: METRONIDAZOLE 500mg IVPB 500 MG/100 ML BAG IV SCH ×2 (01:48→08:20)
[2021-12-19] MEDS: Ringers Lactate 1,000 ML IV SCH (03:41)
[2021-12-19 05:54] LABS: Absolute Lymphocytes (CBC) 1.9 K/uL (0.7-4.9); Hematocrit 40.3 % (39.6-49.0); Lymphocytes % 24.3 % (15.3-44.8); MCV 84.2 fL (80-100); RBC Red Blood Cell Count 4.79 M/uL (4.33-5.43)
[2021-12-19 06:14] LABS: Albumin 3.2 g/dL (3.4-5.0); Bilirubin Total 0.8 mg/dL (0.2-1.0); Phosphorus 3.2 mg/dL (2.5-4.9); Protein, Total 6.8 g/dL (6.4-8.2)
[2021-12-19] MEDS: Ciprofloxacin 200mg IV 200 MG/100 ML IV.SOLN. IV SCH (08:19)
--- NOTE | 2021-12-19 10:03 | P.CNS ---
Date of Consult: 12/19/21 Reason for consult: Abdominal pain History of present illness: 46-year-old gentleman presents to the emergency room with acute onset of left lower quadrant and suprapubic pain. Patient denies any nausea, vomiting, diarrhea, constipation, bright blood per rectum, dysuria or hematuria. Patient has never had this pain before. Patient denies sore throat, runny nose, headaches, dizziness, chest pain, fever or chills. Patient does not have any family history of colorectal malignancy. Patient has never had a colonoscopy before. Review of systems: Otherwise unremarkable Past medical history: Negative, patient has been told that he might be prediabetic. Past surgical history: Right leg surgery Allergies: Ceftriaxone Social history: Patient occasionally smokes cigarettes and drinks alcohol Family history: No history of colorectal malignancy Vital signs: Stable, afebrile Physical exam: Awake alert oriented x3 Head and neck exam: No masses Chest: Clear Heart: S1-S2 Abdomen: Soft, nondistended, positive bowel sounds with minimal tenderness in the left lower quadrant and suprapubic regionno evidence of peritonitis Extremity: Neurovascular intact, nontender Neuro: Nonfocal Diagnostic data: White count was 11,000 yesterday and today it is normal. CT of the abdomen pelvis reviewed with radiologist. Patient has acute sigmoid diverticulitis with no evidence of perforation or abscess. Assessment: Acute sigmoid diverticulitis Plan/recommendation: Admit, IV antibiotics, begin clear liquids and advance as tolerated to low fiber diet. Dietary consultation. Patient can be discharged on oral antibioticsCipro and Flagyl for 2 weeks. Patient needs a colonoscopy in 4 to 6 weeks as an outpatient. Based on the results, surgery may or may not be indicated on this patient CC:
[2021-12-19 12:07] VITALS: BP 118/60; TEMP 97.3
--- NOTE | 2021-12-19 14:39 | P.DS ---
Admission Date: 12/18/21 Discharge Date: 12/19/21 Disposition: ROUTINE DISCHARGE Discharge Condition: GOOD Reason for Admission: Acute Sigmoid Diverticulitis Hospital Course: DIAGNOSES: # Acute Uncomplicated Sigmoid Diverticulitis # Family History of Colon Cancer (Maternal Uncle) # Prediabetes HOSPITAL COURSE: Mr. Ricky Mercer is a pleasant 46 year old male with no reported past medical history who was admitted to the [facility] on 12/18/2021 for acute abdominal pain. Upon presentation, his vital signs were stable. His laboratory studies were notable for a WBC count of 11,100 and a glucose of 147. Urinalysis was within normal limits. CT abdomen/pelvis revealed, "acute sigmoid diverticulitis. Small free fluid in the pelvis. No discrete focal rimenhancing fluid collection to suggest drainable abscess formation at this time. No free air." General Surgery was consulted and he was evaluated by Dr. Cuadra. He was managed non-surgically and his diet was advanced to Regular without any issues. He was educated on a low-fiber diverticulosis diet and provided dietary instructions. I have provided him with extensive details on how diverticulitis can be the first sign of colon cancer and it is essential that he receive a colonoscopy in 6 weeks. He has verbalized understanding and agreed to make this appointment with Gastroenterology. I have given him the office address and phone number for Dr. Castrejon (Gastroenterology). General Surgery has cleared him for discharge with 14-days of ciprofloxacin and metronidazole. Incidentally, he was found to have a hemoglobin A1c of 6.3 % and diagnosed with pre-diabetes. I have provided him counseling on lifestyle modifications and advised that he follow-up with his PCP in 3-5 days. On 12/19/2021, he was seen on rounds and deemed medically stable for discharge. He was discharged with instructions to schedule follow-up appointments with his PCP in 3-5 days and with Gastroenterology in 2-3 weeks for a consultation to schedule a colonoscopy in about 4-6 weeks. He was provided prescriptions for ciprofloxacin and metronidazole. He was given the opportunity to ask questions and reported no further questions. Furthermore, all questions were answered to the best of my ability. Today, I personally spent 25 minutes with him, of which greater than 50% of the time was spent in patient education, counseling, and coordination of care as described above. Vital Signs/Physical Exam: Temp Pulse Resp BP Pulse Ox 97.3 F 71 14 118/60 99 12/19/21 12:00 12/19/21 12:00 12/19/21 12:00 12/19/21 12:00 12/19/21 12:00 General: Alert, In no apparent distress, Oriented x3 HEENT: Atraumatic, PERRLA, Mucous membr. moist/pink, EOMI, Sclerae nonicteric Neck: Supple, JVD not distended Respiratory: Clear to auscultation bilaterally, Normal air movement Cardiovascular: No edema, Regular rate/rhythm, Normal S1 S2, No gallops, No rubs, No murmurs Gastrointestinal: Normal bowel sounds, Soft and benign, Non-distended, No tenderness, No rebound, No guarding Musculoskeletal: No clubbing Integumentary: No rashes Neurological: Normal gait, Normal affect Laboratory Data at Discharge: WBC 7.9 K/uL (4.3-10.9) D 12/19/21 05:23 Hgb 13.3 g/dL (13.6-17.9) L 12/19/21 05:23 Hct 40.3 % (39.6-49.0) 12/19/21 05:23 Plt Count 157 K/uL (152-406) 12/19/21 05:23 Sodium 139 mmol/L (136-145) 12/19/21 05:23 Potassium 4.0 mmol/L (3.5-5.1) 12/19/21 05:23 BUN 18 mg/dL (7-18) 12/19/21 05:23 Creatinine 1.30 mg/dL (0.55-1.3) 12/19/21 05:23 Glucose 85 mg/dL (74-106) 12/19/21 05:23 Phosphorus 3.2 mg/dL (2.5-4.9) 12/19/21 05:23 Magnesium 2.0 mg/dL (1.8-2.4) 12/19/21 05:23 Total Bilirubin 0.8 mg/dL (0.2-1.0) 12/19/21 05:23 AST 14 U/L (15-37) L 12/19/21 05:23 ALT 28 U/L (12-78) 12/19/21 05:23 Alkaline Phosphatase 83 U/L (45-117) 12/19/21 05:23 Lipase 83 U/L (73-393) 12/18/21 05:32 Home Medications: Ciprofloxacin HCl [Cipro 500 MG Tablet] 500 mg PO BID #28 tab 12/19/21 metroNIDAZOLE [Flagyl*] 500 mg PO Q8H #42 tablet 12/19/21 New Medications: Ciprofloxacin HCl [Cipro 500 MG Tablet] 500 mg PO BID #28 tab metroNIDAZOLE [Flagyl*] 500 mg PO Q8H #42 tablet Physician Discharge Instructions: 1. Please schedule a follow-up with appointment with Dr. Castrejon (Gastroenterology) in 2-3 weeks for a consultation to schedule a colonoscopy in about 6 weeks 2. Please schedule a follow-up appointment with your PCP in 3-5 days Diet: Regular (Per diverticulitis diet instrctions) Followup: NONE,NONE [Primary Care Provider] - Philippe Castrejon MD [ASSOCIATE-ACTIVE - CAN ADMIT] - (In 4-6 weeks) Time spent managing pt's care (in minutes): 25
== END 2021-12-19 14:55 | disposition home or self-care (01) | DRG 392 ==
LOC: ER 04:52 → ERHOLD 10:46 → 2ND 13:04
PROVIDERS: ADMIT Internal Medicine; ATTEND Internal Medicine
DX: K57.32 Diverticulitis of large intestine without perforation or abscess without bleeding (principal); R94.4 Abnormal results of kidney function studies; R73.03 Prediabetes; Z80.0 Family history of malignant neoplasm of digestive organs; Z20.822 Contact with and (suspected) exposure to COVID-19
CPT/HCPCS: 36415; 74177; 80053; 81003; 81015; 83036; 83605; 83690; 83735; 84100; 85025; 87040; 87811; 96365; 96375; 99285; J0744; J2270; J2405; J7120; Q9967

== ENCOUNTER 2022-07-24 16:31 | Emergency (ER) | payer OTHER ==
--- OUTSIDE RECORDS SUMMARY | 2022-07-24 16:35 | XMS REPORT | Continuity of Care Document ---
:1975 Author Organization [facility] t Address [address] [place] [address] Care Team Providers Name Role Phone Kirit Rodarte MD Attending Clinician KIRIT RODARTE Attending Clinician Unavailable Doctor Unassigned, [place] Attending Clinician Unavailable Problems Condition Condition Condition Status Onset Resolution Last Treating Co mments Source Name Details Category Date Date Treatment Clinician Date No known No known Disease Unive rs active active ity of problems problems [facility] Allergies, Adverse Reactions, Alerts Allergy Allergy Status Severity Reaction(s) Onset Inactive Treating Comm ents Source Name Type Date Date Clinician NO KNOWN Drug Active Univers ALLERGIE Class ity of S [facility] Social History Social Habit Start Date Stop Date Quantity Comments Source History [facility] University o f Alcohol Std [place] [facility] Dr[facility] Branch History [facility] University o f Alcohol Binge [place] [facility] Tobacco use and 2020-12-26 2020-12-26 Never used Universit y of exposure 00:00:00 00:00:00 [facility] Alcohol intake 2020-12-26 2020-12-26 Lifetime University of 00:00:00 00:00:00 non-drinker [place] [facility] (finding) Branch History SDOH 2020-12-26 2020-12-26 1 University o f Alcohol Frequency 00:00:00 00:00:00 [facility] edical Branch Sex Assigned At [birth year] Universit y of 00:00:00 00:00:00 [facility] Smoking Status Start Date Stop Date Source Unknown if ever smoked Universit y of [facility] Never smoker [facility] Medications Ordered Filled Start Stop Current Ordering Indication Dosage Frequency Signature Comments Components Source Medication Medication Date Date Medication? Clinician (SIG) Name Name No known No Univers medications ity of [facility] No known No Univers medications ity [facility] No known No [facility] No known [facility] Vital Signs Vital Name Observation Time Observation Value Comments Source Systolic blood 2020-12-26 13:41:00 130 mm[Hg] Univer sity [facility] pressure [facility] Diastolic blood 2020-12-26 13:41:00 84 mm[Hg] Unive rsity [facility] Heart rate 2020-12-26 13:41:00 73 /min Universi ty [facility] Body height 2020-12-26 13:41:00 172.7 cm Universi ty [facility] Body weight 2020-12-26 13:41:00 108.863 kg [facility] BMI 2020-12-26 13:41:00 36.49 kg/m2 Universi ty [facility] Procedures Procedure Date / Time Performed Performing Clinician [facility] e REFERRAL- 2020-12-23 05:01:00 Doctor Unassigned, No [facility] REQUEST/RESPONSE Name [facility] Encounters Start End Encounter Admission Attending Care Care Encounter Source Date/Time Date/Time Type Type Clinicians Facility Department ID 2020-12-31 2020-12-31 Telephone [place] [facility] [id number] Univers 00:00:00 00:00:00 [facility] [id number] it y of Surgical [id number] Aaron as Specialti [id number] Ut dical es [address] [facility] 2020-12-26 2020-12-26 [facility] [id number] Univers 08:28:46 09:09:24 Visit [facility] [id number] it y of Surgical [id number] Aaron as Specialti [id number] Ut dical [address] [facility] 2020-12-26 2020-12-26 Outpatient R CAYDEN [facility] [id number] Univers 08:30:00 08:30:00 KIRIT [facility] 2020-12-23 2020-12-23 Orders Doctor DIANA [id number] Univers 00:00:00 00:00:00 Only Unassigned, JAVI [id number] ity of [place] [facility] [id number] Aaron as [id number] [facility] 009 Branch Results This patient has no known results.
[2022-07-24] MEDS ORDERED: ONDANSETRON 4 MG/2 ML VIAL ONE (17:08)
[2022-07-24] MEDS ORDERED: MORPHINE 4 MG/ML SYR ONE (17:08)
[2022-07-24] MEDS ORDERED: NA CHLORIDE 0.9% 1,000 ML ONE (17:08)
[2022-07-24] MEDS ORDERED: FAMOTIDINE 20 MG/2 ML VIAL IV ONE (17:09)
[2022-07-24 17:27] LABS: Hematocrit 47.8 % (39.6-49.0); Lymphocytes % 21.3 % (15.3-44.8); MCV 81.1 fL (80-100); MPV 11.2 fL (7.6-11.3); RBC Red Blood Cell Count 5.89 M/uL (4.33-5.43)
[2022-07-24 17:34] LABS: Albumin 3.2 g/dL (3.4-5.0); Bilirubin Total 0.3 mg/dL (0.2-1.0); Potassium 4.3 mmol/L (3.5-5.1); Protein, Total 6.9 g/dL (6.4-8.2)
[2022-07-24 17:54] LABS: Blood Morphology Comment NOTED (NOT SEEN); Ovalocytes 1+; Platelet Estimate ADEQ; White Blood Cell Scan OK (OK)
--- NOTE | 2022-07-24 18:05 | RAD REPORT ---
EXAM DESCRIPTION: CTAbdomen Pelvis W Contrast - 07/24/2022 5:53 pm CLINICAL HISTORY: ABD PAIN COMPARISON: 12/18/2021 TECHNIQUE: CT of the abdomen and pelvis was performed with IV contrast. All CT scans are performed using dose optimization technique as appropriate and may include automated exposure control or mA/KV adjustment according to patient size. FINDINGS: Lower chest: No acute abnormality. Liver: No acute abnormality or suspicious lesions. Biliary: No biliary ductal dilatation. Stomach: No significant focal abnormality. Duodenum: No significant focal abnormality. Pancreas: No significant abnormality. Spleen: No significant abnormality. Adrenal: No suspicious lesions. Kidney/ureter: No hydronephrosis. No renal calculi. Retroperitoneum: No retroperitoneal adenopathy. Vascular: No aneurysm. Bowel: No significant focal abnormality. Normal appendix. Diverticulosis. No evidence of acute divert iculitis . Inflammatory changes associated with the sigmoid colon on the prior CT have resolved. Peritoneum: No ascites or free air. Bladder: Grossly unremarkable. Reproductive: No adnexal masses. Bones: No acute fracture. Other: n/a IMPRESSION: No acute intra-abdominal or pelvic finding. Normal appendix. Diverticulosis without dive rticulitis .
--- NOTE | 2022-07-24 18:15 | EDPHYS ---
Physician Documentation [facility] Name: Ricky Mercer Jr Age: 47 yrs Sex: Male : 1975 Arrival Date: 07/24/2022 Time: 16:33 Bed 6 Private MD: ED Physician Henry Desai HPI: 07/24 17:40 This 47 yrs old Black Male presents to ER via Ambulatory with complaints of Abdominal kb Pain. 17:40 The patient presents with abdominal pain that is diffuse. Onset: The symptoms/episode kb began/occurred last night. The symptoms radiate to both flanks. Associated signs and symptoms: Pertinent positives: nausea, Pertinent negatives: constipation, diarrhea, fever, vomiting. The symptoms are described as constant. Modifying factors: The symptoms are alleviated by nothing, the symptoms are aggravated by nothing. Severity of pain: At its worst the pain was moderate in the emergency department the pain is unchanged. The patient has not experienced similar symptoms in the past. The patient has not recently seen a physician. Historical: - Allergies: 17:09 Rocephin; ph - PMHx: 17:09 Diverticulitis; ph - PSHx: 17:09 R leg; ph - Immunization history:: Adult Immunizations unknown. - Social history:: Smoking status: Patient denies any tobacco usage or history of. ROS: 17:40 Constitutional: Negative for fever, chills, and weight loss. kb 17:40 Abdomen/GI: Positive for abdominal pain, nausea, Negative for vomiting, diarrhea. 17:40 All other systems are negative. Exam: 17:40 Constitutional: This is a well developed, well nourished patient who is awake, alert, kb and in no acute distress. Head/Face: Normocephalic, atraumatic. ENT: Moist Mucous membranes Cardiovascular: Regular rate and rhythm with a normal S1 and S2. No gallops, murmurs, or rubs. No pulse deficits. Respiratory: Respirations even and unlabored. No increased work of breathing. Talking in full sentences Skin: Warm, dry with normal turgor. Normal color. MS/ Extremity: Pulses equal, no cyanosis. Neurovascular intact. Full, normal range of motion. Neuro: Awake and alert, GCS 15, oriented to person, place, time, and situation. Moves all extremities. Normal gait. Psych: Awake, alert, with orientation to person, place and time. Behavior, mood, and affect are within normal limits. 17:40 Abdomen/GI: Inspection: abdomen appears normal, Bowel sounds: normal, Palpation: soft, in all quadrants, moderate abdominal tenderness, in all quadrants. Vital Signs: 17:06 BP 151 / 90; Pulse 73; Resp 18; Temp 97.2; Pulse Ox 98% on R/A; Weight 111.13 kg; ph Height 5 ft. 8 in. (172.72 cm); 17:06 Body Mass Index 37.25 (111.13 kg, 172.72 cm) ph MDM: 16:36 Patient medically screened. kb 17:39 Differential diagnosis: appendicitis, diverticulitis, gastritis, gastroesophageal kb reflux disease, non-specific abd pain, pancreatitis, Ureterolithiasis. Data reviewed: vital signs, nurses notes. 17:41 ED course: AreaPatient is a 47-year-old male who presents for abdominal pain that kb started yesterday with nausea. Denies, vomiting, fever. Reports he had diverticulitis in the past and this feels the same. On exam patient has diffuse tenderness to abdomen. Nontoxic in appearance. Serum labs and CT abdomen pelvis ordered.. 18:12 Counseling: I had a detailed discussion with the patient and/or guardian regarding: the kb historical points, exam findings, and any diagnostic results supporting the discharge/admit diagnosis, lab results, radiology results, the need for outpatient follow up, a family practitioner, to return to the emergency department if symptoms worsen or persist or if there are any questions or concerns that arise at home. 18:15 ED course: Patient nontoxic in appearance. Tolerating p.o. intake. Educated on kb diagnostic results and need for follow-up with PCP and GI for continued symptoms. Verbal understanding received.. 07/24 16:41 Order name: CBC with Diff; Complete Time: 17:55 kb 07/24 16:41 Order name: CMP; Complete Time: 17:38 kb 07/24 16:41 Order name: Lipase; Complete Time: 17:38 kb 07/24 16:41 Order name: CT Abd/Pelvis - IV Contrast Only; Complete Time: 18:06 kb 07/24 17:32 Order name: CBC Smear Scan; Complete Time: 17:55 EDMS 07/24 16:41 Order name: IV Saline Lock; Complete Time: 17:11 kb 07/24 16:41 Order name: Labs collected and sent; Complete Time: 17:11 kb Administered Medications: 17:10 Drug: NS 0.9% 1000 ml Route: IV; Rate: 1 bolus; Site: right antecubital; ph 18:29 Follow up: Response: No adverse reaction; IV Status: Completed infusion; IV Intake: ph 1000ml 17:10 Drug: Zofran (Ondansetron) 4 mg Route: IVP; Site: right antecubital; ph 18:30 Follow up: Response: No adverse reaction ph 17:12 Drug: Pepcid (famotidine) 20 mg Route: IVP; Site: right antecubital; ph 18:30 Follow up: Response: No adverse reaction ph 17:14 Drug: morphine 4 mg Route: IVP; Infused Over: 4 mins; Site: right antecubital; ph 18:30 Follow up: Response: No adverse reaction; Pain is decreased; RASS: Alert and Calm (0) ph Disposition Summary: 07/24/22 18:15 Discharge Ordered Location: Home kb Condition: Stable kb Diagnosis - Abdominal pain, Generalized kb Followup: kb - With: Private Physician - When: 2 - 3 days - Reason: Recheck today's complaints, Continuance of care, Re-evaluation by your physician Followup: kb - With: Emergency Department - When: As needed - Reason: Worsening of condition Discharge Instructions: - Discharge Summary Sheet kb - Abdominal Pain, Adult, [id number] kb Forms: - Medication Reconciliation Form kb - Thank You Letter kb - Antibiotic Education kb - Prescription Opioid Use kb - Work release form eb Prescriptions: - Zofran 4 mg Oral Tablet - take 1 tablet by ORAL route every 8 hours As needed; 12 tablet; Refills: 0, kb Product Selection Permitted - dicyclomine 20 mg Oral Tablet - take 1 tablet by ORAL route 4 times per day As needed; 20 tablet; Refills: 0, kb Product Selection Permitted Signatures: Dispatcher [employer] Hilaria Shukla FNP-C FNP-Eileen Cuadra, RN RN ph
--- NOTE | 2022-07-24 18:15 | ER ---
Nurse's Notes [facility] Name: Ricky Mercer Jr Age: 47 yrs Sex: Male : 1975 Arrival Date: 07/24/2022 Time: 16:33 Bed 6 Private MD: Diagnosis: Abdominal pain, Generalized Presentation: 07/24 17:06 Chief complaint: Patient states: Abdominal pain since , also reports nausea, ph denies V/D or fever, hx of diverticulitus. Coronavirus screen: Vaccine status: Patient reports being unvaccinated. Ebola Screen: No symptoms or risks identified at this time. Initial Sepsis Screen: Does the patient meet any 2 criteria? No. Patient's initial sepsis screen is negative. Does the patient have a suspected source of infection? No. Patient's initial sepsis screen is negative. Risk Assessment: Do you want to hurt yourself or someone else? Patient reports no desire to harm self or others. Onset of symptoms was July 24, 2022. 17:06 Method Of Arrival: Ambulatory ph 17:06 Acuity: LIZA 3 ph Historical: - Allergies: 17:09 Rocephin; ph - PMHx: 17:09 Diverticulitis; ph - PSHx: 17:09 R leg; ph - Immunization history:: Adult Immunizations unknown. - Social history:: Smoking status: Patient denies any tobacco usage or history of. Screenin:24 [facility] ED Fall Risk Assessment (Adult) History of falling in the last 3 months, ph including since admission No falls in past 3 months (0 pts) Confusion or Disorientation No (0 pts) Intoxicated or Sedated No (0 pts) Impaired Gait No (0 pts) Mobility Assist Device Used No (0 pt) Altered Elimination No (0 pt) Score/Fall Risk Level 0 - 2 = Low Risk Oriented to surroundings, Maintained a safe environment, Hourly rounding (assess needs \T\ fall precautionary measures) done. Abuse screen: Denies threats or abuse. Denies injuries from another. Nutritional screening: No deficits noted. Tuberculosis screening: No symptoms or risk factors identified. Assessment: 17:23 General: Appears in no apparent distress. uncomfortable, well groomed, Behavior is ph calm, cooperative, appropriate for age, Denies fever, chills. Pain: Complains of pain in left upper quadrant and left lower quadrant. Neuro: Level of Consciousness is awake, alert, obeys commands, Oriented to person, place, time, situation. Cardiovascular: Capillary refill < 3 seconds in bilateral fingers Patient's skin is warm and dry. Respiratory: Airway is patent Respiratory effort is even, unlabored. GI: Abdomen is non-distended, Abd is soft X 4 quads Reports lower abdominal pain, upper abdominal pain, nausea, Patient currently denies constipation, vomiting. Derm: Skin is healthy with good turgor, Skin is pink, warm \T\ dry. Vital Signs: 17:06 BP 151 / 90; Pulse 73; Resp 18; Temp 97.2; Pulse Ox 98% on R/A; Weight 111.13 kg; ph Height 5 ft. 8 in. (172.72 cm); 17:06 Body Mass Index 37.25 (111.13 kg, 172.72 cm) ph ED Course: 16:33 Patient arrived in ED. mr 16:35 [facility] kb 16:35 Henry Desai MD is Attending Physician. kb 16:46 Eileen Foster, SHIRA is Primary Nurse. ph 17:09 Triage completed. ph 17:10 Arm band placed on Patient placed in an exam room. ph 17:10 Initial lab(s) drawn, by me, sent to lab. Inserted saline lock: 20 gauge in right ph antecubital area, using aseptic technique. Blood collected. 17:24 Patient has correct armband on for positive identification. Bed in low position. Call ph light in reach. Side rails up X 1. Pulse ox on. NIBP on. Door closed. Noise minimized. Warm blanket given. 17:25 No provider procedures requiring assistance completed. ph 17:55 CT Abd/Pelvis - IV Contrast Only In Process Unspecified. EDMS 18:30 IV discontinued, intact, bleeding controlled, No redness/swelling at site. Pressure ph dressing applied. Administered Medications: 17:10 Drug: NS 0.9% 1000 ml Route: IV; Rate: 1 bolus; Site: right antecubital; ph 18:29 Follow up: Response: No adverse reaction; IV Status: Completed infusion; IV Intake: ph 1000ml 17:10 Drug: Zofran (Ondansetron) 4 mg Route: IVP; Site: right antecubital; ph 18:30 Follow up: Response: No adverse reaction ph 17:12 Drug: Pepcid (famotidine) 20 mg Route: IVP; Site: right antecubital; ph 18:30 Follow up: Response: No adverse reaction ph 17:14 Drug: morphine 4 mg Route: IVP; Infused Over: 4 mins; Site: right antecubital; ph 18:30 Follow up: Response: No adverse reaction; Pain is decreased; RASS: Alert and Calm (0) ph Medication: 17:25 VIS not applicable for this client. ph Intake: 18:29 IV: 1000ml; Total: 1000ml. ph Outcome: 18:15 Discharge ordered by . kb 18:29 Discharged to home ambulatory. ph 18:29 Condition: good 18:29 Discharge instructions given to patient, Instructed on discharge instructions, follow up and referral plans. medication usage, Demonstrated understanding of instructions, follow-up care, medications, Prescriptions given X 2. 18:31 Patient left the ED. ph Signatures: Dispatcher [employer] EDHilaria Manrique, MEGHANN-C [employer] CLE[employer]ER-Rowena Moreno Patricia, RN RN ph Corrections: (The following items were deleted from the chart) 18:30 07:14 morphine 4 mg IVP in right antecubital over 4 mins ph ph
[2022-07-24 18:46] VITALS: BP 151/90; TEMP 97.2; O2SAT 98
== END 2022-07-24 18:31 | disposition home or self-care (01) ==
LOC: ER 16:31
DX: R10.84 Generalized abdominal pain (principal); Z88.3 Allergy status to other anti-infective agents
CPT/HCPCS: 96361; 85025; 36415; 83690; 80053; 74177; 96375; 96374; 99284; Q9967; J7030; J2405

== ENCOUNTER 2024-03-03 21:33 | Emergency (ER) | payer OTHER ==
--- NOTE | 2024-03-03 22:14 | RAD REPORT ---
EXAMINATION: CT LUMBAR SPINE WITHOUT CONTRAST CLINICAL INDICATION: Male, 49 years old. low back pain TECHNIQUE: Axial CT images were obtained through the lumbar spine in soft tissue and bone windows wit hout intravenous contrast. Coronal and Sagittal reformatted images were created from the data set. One or more of the following dose reduction techniques were used: Automated exposure control, adjustm ent of the mA and/ or kV according to patient size, and/or iterative reconstruction. Unless otherwise specified, incidental findings do not require dedicated imaging follow-up. [id number]. COMPARISON: CT abdomen/pelvis 02/23/2023 FINDINGS: For purposes of this dictation, it is assumed that there are 5 non rib-bearing lumbar type vertebrae, and the most caudal fully segmented lumbar vertebra is labeled L5. ALIGNMENT: The lumbar spine demonstrates normal alignment without scoliosis or spondylolisthesis. BONES: No significant soft tissue abnormalities. No aggressive osseous lesions. DISCS: Intervertebral disc space heights are maintained. LEVELS: Posterior spurring with broad-based disc bulges present at every level in the lumbar spine. T here is at most mild to moderate central spinal stenosis. This can be better assessed with MRI. Moderate facet degenerative changes are present at L4-5 and L5-S1. Moderate neural foraminal narrowin g is present bilaterally at L4-5 and L5-S1. These findings are similar to 02/23/2023. SOFT TISSUE: No soft tissue abnormalities. Atherosclerosis. IMPRESSION: No acute lumbar spine abnormalities. Degenerative disc disease with multiple broad-based disc bulges and mild to moderate central spinal stenosis. Evidence of bilateral neural foraminal narrowing is also present. No high-grade central spinal stenosis identified. MRI could better assess if clinically indicated.
[2024-03-03 22:26] LABS: Specific Gravity 1.025 (1.005-1.030); Sqamous Epithelial None Seen /HPF (None Seen); Urine Bacteria <20 /HPF (<20); Urine Bilirubin NEGATIVE (Negative); Urine Blood Negative (Negative); Urine Clarity Clear (Clear); Urine Color Light-Yellow (Yellow); Urine Culture Reflex Order NOT NEEDED; Urine Glucose NEGATIVE (Negative); Urine Ketones NEGATIVE (Negative); Urine Micro Reflex YN NO BILL MICROSCOPIC; Urine Mucus Slight /HPF (None Seen); Urine Nitrite NEGATIVE (Negative); Urine Protein NEGATIVE (Negative); Urine RBC <5 /HPF (None Seen); Urine Urobilinogen Normal (Normal); Urine WBC <5 /HPF (<5); Urine pH 5.5 (5.0-7.0)
[2024-03-03] MEDS ORDERED: ACETAMINOPHEN 500 MG TAB ONE (22:26)
[2024-03-03] MEDS ORDERED: KETOROLAC 30 MG/ML INJ ONE (22:27)
[2024-03-03] MEDS ORDERED: DIAZEPAM 5 MG TABLET ONE (22:27)
[2024-03-03] MEDS ORDERED: methocarbamoL 500 MG TAB ONE (22:27)
--- NOTE | 2024-03-03 23:00 | ER ---
Nurse's Notes [facility] Name: Ricky Mercer Jr Age: 49 yrs Sex: Male : 1975 Arrival Date: 03/03/2024 Time: 21:33 Bed 18 Private MD: Diagnosis: Low back pain Presentation: 03/03 21:38 Chief complaint: Patient states: SUDDEN ONSET OF BACK PAIN SINCE YESTERDAY , FLANK ha1 PAIN. PAIN FULL TO THE THE TOUCH. 21:38 Coronavirus screen: Vaccine status: Patient reports being unvaccinated. Ebola Screen: ha1 No symptoms or risks identified at this time. Initial Sepsis Screen: Does the patient meet any 2 criteria? No. Patient's initial sepsis screen is negative. Does the patient have a suspected source of infection? No. Patient's initial sepsis screen is negative. Risk Assessment: Do you want to hurt yourself or someone else? Patient reports no desire to harm self or others. Onset of symptoms was March 02, 2024. 21:38 Method Of Arrival: Ambulatory ha1 21:38 Acuity: LIZA 3 ha1 Triage Assessment: 21:38 General: Appears uncomfortable, Behavior is cooperative. Pain: Complains of pain in ha1 back Pain radiates to pelvis Pain currently is 10 out of 10 on a pain scale. Quality of pain is described as sharp, shooting. Neuro: Level of Consciousness is awake, alert, obeys commands, Oriented to person, place, time, situation. Cardiovascular: Patient's skin is warm and dry. Respiratory: Airway is patent Respiratory effort is even, unlabored, Respiratory pattern is regular, symmetrical. Musculoskeletal: Circulation, motion, and sensation intact. Reports pain in back. Historical: - Allergies: 22:03 Rocephin; ha1 - PMHx: 22:03 Diverticulitis; ha1 - PSHx: 22:03 r leg; ha1 - Immunization history:: Adult Immunizations up to date. - Infectious Disease History:: Denies. - Social history:: Smoking status: Patient reports use of chewing tobacco. Screenin:00 [facility] ED Fall Risk Assessment (Adult) History of falling in the last 3 months, br2 including since admission No falls in past 3 months (0 pts) Confusion or Disorientation No (0 pts) Intoxicated or Sedated No (0 pts) Impaired Gait No (0 pts) Mobility Assist Device Used No (0 pt) Altered Elimination No (0 pt) Score/Fall Risk Level 0 - 2 = Low Risk. 22:04 Abuse screen: Denies threats or abuse. Denies injuries from another. Nutritional ha1 screening: No deficits noted. Tuberculosis screening: No symptoms or risk factors identified. Assessment: 22:00 Reassessment: Patient and/or family updated on plan of care and expected duration. Pain br2 level reassessed. Patient is alert, oriented x 3, equal unlabored respirations, skin warm/dry/pink. General: Appears uncomfortable, Behavior is calm, cooperative, quiet. Pain: Complains of pain in left low back and right low back Pain does not radiate. Pain began 1 day ago. Neuro: Meeks Agitation-Sedation Scale (RASS): 0 - Alert and Calm Level of Consciousness is awake, alert, obeys commands, Oriented to person, place, time, situation. Cardiovascular: Denies chest pain, shortness of breath, Capillary refill < 3 seconds. Respiratory: Airway is patent Respiratory effort is even, unlabored, Respiratory pattern is regular, symmetrical. GI: No signs and/or symptoms were reported involving the gastrointestinal system. Abdomen is round non-distended, Bowel sounds present X 4 quads. Abd is soft and non tender X 4 quads. : No signs and/or symptoms were reported regarding the genitourinary system. Reports pain in bilateral flank(s), Denies burning with urination, inability to void, urinary frequency. EENT: No signs and/or symptoms were reported regarding the EENT system. Derm: No signs and/or symptoms reported regarding the dermatologic system. Skin is intact, Skin is dry, Skin is normal, Skin temperature is warm. Musculoskeletal: No signs and/or symptoms reported regarding the musculoskeletal system. Circulation, motion, and sensation intact. Capillary refill < 3 seconds, Range of motion: intact in all extremities. 23:02 Reassessment: No changes from previously documented assessment. Patient and/or family br2 updated on plan of care and expected duration. Pain level reassessed. Patient is alert, oriented x 3, equal unlabored respirations, skin warm/dry/pink. Patient states symptoms have not improved. 23:30 Reassessment: PT WAS PICKED UP BY SON TEMO. PT WAS TAKEN VIA WHEELCHAIR TO VEHICLE AT br2 DISCHARGE DUE TO MEDS ADMINISTERED. Vital Signs: 21:38 BP 157 / 107; Pulse 67; Resp 17 S; Temp 98.4(O); Pulse Ox 100% on R/A; Weight 111.13 ha1 kg; Height 5 ft. 8 in. ; 22:48 BP 142 / 92; Pulse 59; Resp 16 S; Temp 97(TE); Pulse Ox 97% on R/A; br2 23:01 BP 135 / 93; Pulse 61; Resp 18 S; Pulse Ox 98% on R/A; Pain 9/10; br2 21:38 Body Mass Index 37.25 (111.13 kg, 172.72 cm) ha1 23:01 Pain Scale: Adult br2 ED Course: 21:35 Patient arrived in ED. im 21:38 Patient has correct armband on for positive identification. Placed in gown. Bed in low ha1 position. Call light in reach. Side rails up X 1. 21:38 Provided Education on: PLAN OF CARE . Client placed on continuous cardiac and pulse ha1 oximetry monitoring. NIBP monitoring applied. 21:38 Patient PLAN OF CARE. br2 21:39 Costa Garces MD is Attending Physician. ec2 22:03 Triage completed. ha1 22:03 Oly Mina, SHIRA is Primary Nurse. br2 22:06 CT Lumbar Spine Wo Con In Process Unspecified. EDMS 22:23 UAM Sent. br2 23:30 No provider procedures requiring assistance completed. Patient did not have IV access br2 during this emergency room visit. Administered Medications: 22:36 Drug: Ketorolac IM 30 mg IM once Route: IM; Site: left gluteus; br2 23:01 Follow up: Response: No adverse reaction; Pain is unchanged, physician notified br2 22:36 Drug: Diazepam PO 5 mg PO once Route: PO; br2 23:01 Follow up: Response: No adverse reaction; Pain is unchanged, physician notified br2 22:36 Drug: Acetaminophen PO 1000 mg PO once Route: PO; br2 23:01 Follow up: Response: No adverse reaction; Pain is unchanged, physician notified br2 22:36 Drug: Methocarbamol PO 500 mg PO once Route: PO; br2 23:00 Follow up: Response: No adverse reaction; Pain is unchanged, physician notified br2 23:30 Drug: morphine IM 4 mg IM once Route: IM; Site: right gluteus; br2 23:43 Follow up: Response: Medication administered at discharge. br2 Medication: 22:00 VIS not applicable for this client. br2 Outcome: 22:59 Discharge ordered by . ec2 23:30 Discharged to home via wheelchair, br2 23:30 Condition: good 23:30 Discharge instructions given to patient, family, Instructed on discharge instructions, follow up and referral plans. medication usage, Demonstrated understanding of instructions, follow-up care, medications, Prescriptions given X 1, 23:30 Patient left the ED. br2 Signatures: Dispatcher [employer] Leela Junior RN RN ha1 Paola Chan Edwin, MD MD ec2 Oly Mina RN RN br2 Corrections: (The following items were deleted from the chart) 23:43 23:39 morphine IM 4 mg IM in right gluteus br2 br2 23:44 23:44 Patient left the ED. br2 br2
--- NOTE | 2024-03-03 23:00 | EDPHYS ---
Physician Documentation [facility] Name: Ricky Mercer Jr Age: 49 yrs Sex: Male : 1975 Arrival Date: 03/03/2024 Time: 21:33 Bed 18 Private MD: ED Physician Costa Garces HPI: 03/03 21:39 This 49 yrs old Black Male presents to ER via Unassigned with complaints of Back Pain, ec2 Flank Pain. 21:48 Patient arrives today for evaluation of low back pain. Patient reports that he has been ec2 experiencing several days of low back pain. Patient reports no recent falls injuries or trauma. Patient reports no fevers or chills, no nausea or vomiting. Patient reports that he has a history of low back pain and back issues. Patient reports no urinary complaints, previous evaluations for kidney stones however no diagnosis of kidney stones. . Historical: - Allergies: 22:03 Rocephin; ha1 - PMHx: 22:03 Diverticulitis; ha1 - PSHx: 22:03 r leg; ha1 - Immunization history:: Adult Immunizations up to date. - Infectious Disease History:: Denies. - Social history:: Smoking status: Patient reports use of chewing tobacco. ROS: 21:48 Constitutional: as per hpi ec2 Exam: 21:48 Constitutional: GEN: NAD Head: atraumatic Eyes: EOMI Ears: External ears are ec2 normal. CV: regular rate LUNGS: no respiratory distress ABD: non-distended SKIN: no evidence of rashes MSK: no evidence of trauma, slight TTP to the L-spine, no deformities, no crepitus, no CVA TTP Vital Signs: 21:38 BP 157 / 107; Pulse 67; Resp 17 S; Temp 98.4(O); Pulse Ox 100% on R/A; Weight 111.13 ha1 kg; Height 5 ft. 8 in. ; 22:48 BP 142 / 92; Pulse 59; Resp 16 S; Temp 97(TE); Pulse Ox 97% on R/A; br2 23:01 BP 135 / 93; Pulse 61; Resp 18 S; Pulse Ox 98% on R/A; Pain 9/10; br2 21:38 Body Mass Index 37.25 (111.13 kg, 172.72 cm) ha1 23:01 Pain Scale: Adult br2 MDM: 21:42 Patient medically screened. ec2 21:49 Data reviewed: vital signs. ED course: Patient arrives today for evaluation of low back ec2 pain. Examination remarkable for well-appearing nontoxic individuals otherwise in no acute distress with a reassuring examination. Will obtain CT of the L-spine to evaluate for bony pathology, differential diagnosis considered include other processes such as ureteral stone, urinary tract infection.. 22:27 ED course: CT of the L-spine shows DJD. . ec2 22:59 ED course: Will give the patient a dose of IM morphine for pain. Patient reports she ec2 has a ride to go home with. Will discharge home. Return precautions given.. 03/03 21:49 Order name: UAM; Complete Time: 22:27 ec2 03/03 21:48 Order name: CT Lumbar Spine Wo Con; Complete Time: 22:27 ec2 Administered Medications: 22:36 Drug: Ketorolac IM 30 mg IM once Route: IM; Site: left gluteus; br2 23:01 Follow up: Response: No adverse reaction; Pain is unchanged, physician notified br2 22:36 Drug: Diazepam PO 5 mg PO once Route: PO; br2 23:01 Follow up: Response: No adverse reaction; Pain is unchanged, physician notified br2 22:36 Drug: Acetaminophen PO 1000 mg PO once Route: PO; br2 23:01 Follow up: Response: No adverse reaction; Pain is unchanged, physician notified br2 22:36 Drug: Methocarbamol PO 500 mg PO once Route: PO; br2 23:00 Follow up: Response: No adverse reaction; Pain is unchanged, physician notified br2 23:30 Drug: morphine IM 4 mg IM once Route: IM; Site: right gluteus; br2 23:43 Follow up: Response: Medication administered at discharge. br2 Disposition Summary: 03/03/24 22:59 Discharge Ordered Notes: Location: Home ec2 Condition: Stable ec2 Diagnosis - Low back pain ec2 Followup: ec2 - With: Private Physician - When: - Reason: Re-evaluation by your physician Discharge Instructions: - Discharge Summary Sheet ec2 - Acute Back Pain, Adult ec2 Forms: - Medication Reconciliation Form ec2 - Antibiotic Education ec2 - Prescription Opioid Use ec2 - Patient Portal Instructions ec2 - Leadership Thank You Letter ec2 Prescriptions: - acetaminophen-codeine 300-30 mg Oral tablet - take 1 tablet ORAL route every 8 hours as needed for pain; 10 tablet; Refills: ec2 0, Product Selection Permitted Signatures: Dispatcher [employer] Leela Junior RN RN ha1 Costa Garces MD MD ec2 Oly Mina RN RN br2 Corrections: (The following items were deleted from the chart) 21:48 21:48 Spine Lumbar Wo Con+CT.RAD.BRZ ordered. EDMS EDMS 21:49 21:49 Urinalysis W/Microscopic+U.LAB.BRZ ordered. EDMS EDMS
[2024-03-03] MEDS ORDERED: MORPHINE 4 MG/ML SYR ONE (23:05)
[2024-03-03 23:50] VITALS: TEMP 97
[2024-03-03 23:52] VITALS: BP 135/93; O2SAT 98
== END 2024-03-03 23:44 | disposition home or self-care (01) ==
LOC: ER 21:33
DX: M54.50 Low back pain, unspecified (principal)
CPT/HCPCS: 72131; 81001; 96372; 99284

== ENCOUNTER 2024-07-01 00:48 | Emergency (ER) | payer OTHER ==
[2024-07-01] MEDS ORDERED: ACETAMINOPHEN 500 MG TAB ONE (01:33)
[2024-07-01] MEDS ORDERED: ONDANSETRON 4 MG/2 ML VIAL ONE (01:33)
[2024-07-01] MEDS ORDERED: guaiFENesin 100 MG/5 ML UCUP ONE (01:33)
[2024-07-01] MEDS ORDERED: PROMETHAZINE 25 MG TABLET ONE (01:33)
[2024-07-01] MEDS ORDERED: NA CHLORIDE 0.9% 2,000 ML ONE (01:34)
[2024-07-01] MEDS ORDERED: IBUPROFEN 400 MG TAB ONE (01:34)
[2024-07-01] MEDS ORDERED: BENZONATATE 100 MG CAP PO ONE (01:34)
[2024-07-01 01:52] LABS: Absolute Lymphocytes (CBC) 0.8 K/uL (0.7-4.9); Absolute Monocytes 0.9 K/uL (0.1-1.3); Absolute Neutrophil 4.9 K/uL (1.8-8.0); Basophils % 0.7 % (0-1.3); Eosinophils % 0.7 % (0-4.4); Hematocrit 43.6 % (39.6-49.0); Hemoglobin 14.7 g/dL (13.6-17.9); Lymphocytes % 11.6 % (15.3-44.8); MCH 27.9 pg (27.0-35.0); MCHC 33.7 g/dL (32.0-36.0); MCV 82.9 fL (80-100); MPV 11.6 fL (7.6-11.3); Monocytes % 14.2 % (3.3-12.3); Neutrophils % 72.8 % (41.7-73.7); Platelets 158 thou/uL (152-406); RBC Red Blood Cell Count 5.26 M/uL (4.33-5.43); Red Cell Distribution Width 12.9 % (12.1-15.2)
[2024-07-01 02:09] LABS: Albumin 3.3 g/dL (3.4-5.0); Albumin/Globulin Ratio 0.8 (1.1-1.8); Anion Gap 8.6 mEq/L (5.0-15.0); Bilirubin Total 0.5 mg/dL (0.2-1.0); Globulin 4.3 g/dL (2.3-3.5); Potassium 3.6 mEq/L (3.5-5.1); Protein, Total 7.6 g/dL (6.4-8.2)
--- NOTE | 2024-07-01 03:17 | ER ---
Nurse's Notes [facility] Name: Ricky Mercer Jr Age: 49 yrs Sex: Male : 1975 Arrival Date: 07/01/2024 Time: 00:48 Bed 5 Private MD: Diagnosis: Other specified viral diseases;Acute viral syndrome Presentation: 07/01 00:12 Chief complaint: Patient states: COUGH, NASAL CONGESTION, FEVER, DRY PERSISTENT COUGH. ha1 00:12 Coronavirus screen: Client denies travel out of the [place] in the last 14 days. Ebola ha1 Screen: No symptoms or risks identified at this time. Initial Sepsis Screen: Does the patient meet any 2 criteria? No. Patient's initial sepsis screen is negative. Does the patient have a suspected source of infection? No. Patient's initial sepsis screen is negative. Risk Assessment: Do you want to hurt yourself or someone else? Patient reports no desire to harm self or others. Onset of symptoms was July 01, 2024. 00:12 Method Of Arrival: Wheelchair ha1 00:12 Acuity: LIZA 3 ha1 Triage Assessment: 01:12 General: Appears uncomfortable, Behavior is calm, cooperative. Pain: Complains of pain ha1 in BODY ACHES. Neuro: Level of Consciousness is awake, alert, obeys commands, Oriented to person, place, time, situation. Cardiovascular: Capillary refill < 3 seconds Patient's skin is warm and dry. Respiratory: Reports cough that is non-productive, dry, persistent Airway is patent Respiratory effort is even, unlabored, Respiratory pattern is regular, symmetrical. GI: No signs and/or symptoms were reported involving the gastrointestinal system. Musculoskeletal: Circulation, motion, and sensation intact. Range of motion: intact in all extremities. Historical: - Allergies: 01:12 Rocephin; ha1 - PMHx: 01:12 Diverticulitis; ha1 - PSHx: 01:12 r leg; ha1 - Immunization history:: Adult Immunizations up to date. - Infectious Disease History:: Denies. - Social history:: Smoking status: Patient denies any tobacco usage or history of. - Family history:: not pertinent. Screenin:27 [facility] ED Fall Risk Assessment (Adult) History of falling in the last 3 months, ha1 including since admission No falls in past 3 months (0 pts) Confusion or Disorientation No (0 pts) Intoxicated or Sedated No (0 pts) Impaired Gait No (0 pts) Mobility Assist Device Used No (0 pt) Altered Elimination No (0 pt) Score/Fall Risk Level 0 - 2 = Low Risk Oriented to surroundings, Maintained a safe environment, Educated pt \T\ family on fall prevention, incl call for assistance when getting out of bed, Hourly rounding (assess needs \T\ fall precautionary measures) done. Abuse screen: Denies threats or abuse. Denies injuries from another. Nutritional screening: No deficits noted. Tuberculosis screening: No symptoms or risk factors identified. Assessment: 01:43 General: Appears in no apparent distress. comfortable, Behavior is calm, cooperative, bm8 appropriate for age. Pain: Complains of pain in generalized body aches. 01:44 Pain: Pain currently is 5 out of 10 on a pain scale. Quality of pain is described as bm8 aching, crampy. Neuro: No deficits noted. Level of Consciousness is awake, alert, obeys commands, Oriented to person, place, time, situation, Appropriate for age. Cardiovascular: Denies chest pain, Heart tones S1 S2 present Capillary refill < 3 seconds in bilateral fingers Patient's skin is warm and dry. Respiratory: Reports cough that is Airway is patent Respiratory effort is even, unlabored, Respiratory pattern is regular, symmetrical. GI: No signs and/or symptoms were reported involving the gastrointestinal system. : No signs and/or symptoms were reported regarding the genitourinary system. EENT: No signs and/or symptoms were reported regarding the EENT system. Derm: No signs and/or symptoms reported regarding the dermatologic system. Musculoskeletal: No signs and/or symptoms reported regarding the musculoskeletal system. 03:19 Reassessment: Patient appears in no apparent distress at this time. Patient and/or bm8 family updated on plan of care and expected duration. Pain level reassessed. Patient is alert, oriented x 3, equal unlabored respirations, skin warm/dry/pink. Patient denies pain at this time. Patient states feeling better. Patient states symptoms have improved. Vital Signs: 00:12 BP 134 / 90; Pulse 91; Resp 19 S; Temp 100.1; Pulse Ox 99% on R/A; Weight 111.13 kg; ha1 Height 5 ft. 8 in. ; 03:19 BP 131 / 87; Pulse 81; Resp 17; Temp 98.7; Pulse Ox 99% ; Pain 0/10; bm8 00:12 Body Mass Index 37.25 (111.13 kg, 172.72 cm) ha1 03:19 Pain Scale: Adult bm8 Juan Coma Score: 01:44 Eye Response: spontaneous(4). Motor Response: obeys commands(6). Verbal Response: bm8 oriented(5). Total: 15. 03:19 Eye Response: spontaneous(4). Motor Response: obeys commands(6). Verbal Response: bm8 oriented(5). Total: 15. 19:07 Eye Response: spontaneous(4). Motor Response: obeys commands(6). Verbal Response: sp4 oriented(5). Total: 15. ED Course: 00:52 Patient arrived in ED. gm2 00:58 Adolfo Cooper MD is Attending Physician. sp4 01:14 Patient has correct armband on for positive identification. Placed in gown. Bed in low ha1 position. Call light in reach. Side rails up X 1. Adult w/ patient. 01:14 Provided Education on: PLAN OF CARE . ha1 01:25 Triage completed. ha1 01:37 Inserted saline lock: 20 gauge in left antecubital area, using aseptic technique. cg4 01:44 Door closed. Warm blanket given. Pillow given. Verbal reassurance given. Head of bed bm8 elevated. 01:44 No provider procedures requiring assistance completed. bm8 01:46 Devin Rodarte, RN is Primary Nurse. bm8 03:19 IV discontinued, intact, bleeding controlled, No redness/swelling at site. Pressure bm8 dressing applied. 03:22 Arm band placed on right wrist. bm8 Administered Medications: 01:27 CANCELLED (Physician Discretion): ns 0.9% 250 ml IV at bolus once; to be given as a sp4 bolus over 30 minutes 01:42 Drug: Ondansetron IVP 4 mg IVP once; over 2 minutes Route: IVP; Site: left antecubital; bm8 03:21 Follow up: Response: No adverse reaction bm8 01:42 Drug: NS 0.9% IV 1000 ml IV at 1 bolus Per protocol; to be given as a bolus over 60 bm8 minutes Route: IV; Rate: 1 bolus; Site: left antecubital; 03:21 Follow up: Response: No adverse reaction; IV Status: Completed infusion; IV Intake: bm8 1000ml 01:43 Drug: Acetaminophen PO 1000 mg PO once Route: PO; bm8 03:20 Follow up: Response: No adverse reaction bm8 01:43 Drug: Ibuprofen PO 800 mg PO once Route: PO; bm8 03:20 Follow up: Response: No adverse reaction bm8 01:43 Drug: Promethazine PO 25 mg PO once Route: PO; bm8 03:20 Follow up: Response: No adverse reaction bm8 01:43 Drug: Dextromethorphan-Guaifenesin PO Liquid 10 mg-100 mg/5 mL 20 ml PO once Route: PO; bm8 03:20 Follow up: Response: No adverse reaction bm8 01:43 Drug: Tessalon Perle PO 200 mg PO once Route: PO; bm8 03:20 Follow up: Response: No adverse reaction bm8 01:46 CANCELLED (Duplicate Order): ns 0.9% 1000 ml IV at 1 bolus Per protocol; to be given as bm8 a bolus over 60 minutes Medication: 01:27 VIS not applicable for this client. ha1 Intake: 03:21 IV: 1000ml; Total: 1000ml. bm8 Outcome: 03:16 Discharge ordered by . sp4 03:19 Discharged to home ambulatory, with family, bm8 03:19 Condition: stable 03:19 Discharge instructions given to patient, family, Instructed on discharge instructions, follow up and referral plans. no drinking with medication, no driving heavy equipment, medication usage, safety practices, Demonstrated understanding of instructions, follow-up care, medications, 03:22 Prescriptions given X x6 bm8 03:31 Patient left the ED. dd2 Signatures: Leela Griffin RN RN ha1 Adolfo Cooper MD MD sp4 Elsie Mahan 2 Devin Rodarte RN RN bm8 BRADEN BEAL RN RN dd2 Bina Hebert 4
--- NOTE | 2024-07-01 03:17 | EDPHYS ---
Physician Documentation [facility] Name: Ricky Mercer Jr Age: 49 yrs Sex: Male : 1975 Arrival Date: 07/01/2024 Time: 00:48 Bed 5 Private MD: ED Physician Adolfo Cooper HPI: 07/01 00:58 This 49 yrs old Black Male presents to ER via Unassigned with complaints of Flu sp4 Symptoms, Weakness. 19:07 Patient presents with generalized weakness fever and cough. sp4 Historical: - Allergies: 01:12 Rocephin; ha1 - PMHx: 01:12 Diverticulitis; ha1 - PSHx: 01:12 r leg; ha1 - Immunization history:: Adult Immunizations up to date. - Infectious Disease History:: Denies. - Social history:: Smoking status: Patient denies any tobacco usage or history of. - Family history:: not pertinent. ROS: 19:07 Constitutional: positive for fever chills and cough, positive for generalized sp4 weakness positive for nausea 19:07 All other systems are negative, Exam: 19:07 Constitutional: This is a well developed, well nourished patient who is awake, alert, sp4 uncomfortable appearing male, febrile on arrival Head/Face: Normocephalic, atraumatic. Eyes: Pupils equal round and reactive to light, extra-ocular motions intact. Lids and lashes normal. Conjunctiva and sclera are not injected. Cornea within normal limits. Periorbital areas with no swelling, redness, or edema. ENT: Nares patent. No nasal discharge, no septal abnormalities noted. Tympanic membranes are normal and external auditory canals are clear. Oropharynx with no redness, swelling, or masses, exudates, or evidence of obstruction, uvula midline. Mucous membranes moist. Neck: Trachea midline, no thyromegaly or masses palpated, and no cervical lymphadenopathy. Supple, full range of motion without nuchal rigidity, or vertebral point tenderness. Chest/axilla: Normal chest wall appearance and motion. Nontender with no deformity. No lesions are appreciated. Cardiovascular: Regular rate and rhythm with a normal S1 and S2. No gallops, murmurs, or rubs. Normal PMI, no JVD. No pulse deficits. Respiratory: Lungs have equal breath sounds bilaterally, clear to auscultation and percussion. No rales, rhonchi or wheezes noted. No increased work of breathing, no retractions or nasal flaring. Abdomen/GI: Soft, with normal bowel sounds. No distension or tympany. No guarding or rebound. No evidence of tenderness throughout. Back: No spinal tenderness. No costovertebral tenderness. Skin: Warm, dry with normal turgor. Normal color with no rashes, no lesions, and no evidence of cellulitis. MS/ Extremity: Pulses equal, no cyanosis. Neurovascular intact. Full, normal range of motion. Neuro: Awake and alert, GCS 15, oriented to person, place, time, and situation. Cranial nerves II-XII grossly intact. Motor strength 5/5 in all extremities. Sensory grossly intact. Psych: Awake, alert, with orientation to person, place and time. Behavior, mood, and affect are within normal limits Vital Signs: 00:12 BP 134 / 90; Pulse 91; Resp 19 S; Temp 100.1; Pulse Ox 99% on R/A; Weight 111.13 kg; ha1 Height 5 ft. 8 in. ; 03:19 BP 131 / 87; Pulse 81; Resp 17; Temp 98.7; Pulse Ox 99% ; Pain 0/10; bm8 00:12 Body Mass Index 37.25 (111.13 kg, 172.72 cm) ha1 03:19 Pain Scale: Adult bm8 Duncan Coma Score: 01:44 Eye Response: spontaneous(4). Motor Response: obeys commands(6). Verbal Response: bm8 oriented(5). Total: 15. 03:19 Eye Response: spontaneous(4). Motor Response: obeys commands(6). Verbal Response: bm8 oriented(5). Total: 15. 19:07 Eye Response: spontaneous(4). Motor Response: obeys commands(6). Verbal Response: sp4 oriented(5). Total: 15. MDM: 00:59 Medical Screening Exam initiated sp4 19:09 Data reviewed: vital signs, nurses notes, EMS record, lab test result(s), CBC, sp4 electrolytes. 19:09 Consideration of Admission/Observation Escalation of care including sp4 admission/observation considered. ED course: Patient felt much improved after medications. Stable for discharge home. 07/01 00:59 Order name: Influenza Screen (a \T\ B); Complete Time: 02:49 sp4 07/01 01:19 Order name: CBC with Diff; Complete Time: 02:49 sp4 07/01 01:19 Order name: CMP; Complete Time: 02:49 sp4 07/01 01:19 Order name: Lipase; Complete Time: 02:49 sp4 07/01 01:19 Order name: IV Saline Lock; Complete Time: 01:43 sp4 07/01 01:19 Order name: Labs collected and sent; Complete Time: :43 sp4 Administered Medications: 01:27 CANCELLED (Physician Discretion): ns 0.9% 250 ml IV at bolus once; to be given as a sp4 bolus over 30 minutes 01:42 Drug: Ondansetron IVP 4 mg IVP once; over 2 minutes Route: IVP; Site: left antecubital; bm8 03:21 Follow up: Response: No adverse reaction bm8 01:42 Drug: NS 0.9% IV 1000 ml IV at 1 bolus Per protocol; to be given as a bolus over 60 bm8 minutes Route: IV; Rate: 1 bolus; Site: left antecubital; 03:21 Follow up: Response: No adverse reaction; IV Status: Completed infusion; IV Intake: bm8 1000ml 01:43 Drug: Acetaminophen PO 1000 mg PO once Route: PO; bm8 03:20 Follow up: Response: No adverse reaction bm8 01:43 Drug: Ibuprofen PO 800 mg PO once Route: PO; bm8 03:20 Follow up: Response: No adverse reaction bm8 01:43 Drug: Promethazine PO 25 mg PO once Route: PO; bm8 03:20 Follow up: Response: No adverse reaction bm8 01:43 Drug: Dextromethorphan-Guaifenesin PO Liquid 10 mg-100 mg/5 mL 20 ml PO once Route: PO; bm8 03:20 Follow up: Response: No adverse reaction bm8 01:43 Drug: Tessalon Perle PO 200 mg PO once Route: PO; bm8 03:20 Follow up: Response: No adverse reaction bm8 01:46 CANCELLED (Duplicate Order): ns 0.9% 1000 ml IV at 1 bolus Per protocol; to be given as bm8 a bolus over 60 minutes Disposition Summary: 07/01/24 03:16 Discharge Ordered Notes: Location: Home sp4 Problem: new sp4 Symptoms: have improved sp4 Condition: Stable sp4 Diagnosis - Other specified viral diseases sp4 - Acute viral syndrome sp4 Followup: sp4 - With: Private Physician - When: 7 - 10 days - Reason: Recheck today's complaints Discharge Instructions: - Discharge Summary Sheet sp4 - Viral Illness, Adult sp4 Forms: - Patient Portal Instructions sp4 - Work release form bm8 Prescriptions: - dextromethorphan-guaifenesin 20-400 mg Oral tablet - take 1 tablet ORAL route 4 times per day as needed for cough; 30 tablet; sp4 Refills: 0, Product Selection Permitted - Ibuprofen 800 mg Oral Tablet - take 1 tablet ORAL route every 8 hours As needed take with food; 30 tablet; sp4 Refills: 0, Product Selection Permitted - benzonatate 200 mg Oral capsule - take 1 capsule ORAL route every 6 hours as needed; 60 capsule; Refills: 0, sp4 Product Selection Permitted - promethazine 25 mg Oral tablet - take 1 tablet ORAL route every 6 hours As needed PRN nausea; 30 tablet; sp4 Refills: 0, Product Selection Permitted - Tamiflu 75 mg Oral capsule - take 1 tablet ORAL route every 12 hours for 5 days; 10 tablet; Refills: 0, sp4 Product Selection Permitted Signatures: Dispatcher [employer] EDLeela Nixon, SHIRA RN ha1 Adolfo Cooper MD MD sp4 Devin Rodarte RN RN bm8 Corrections: (The following items were deleted from the chart) 01:20 01:20 CBC+H.LAB.BRZ ordered. EDMS EDMS 01:20 01:20 COMPREHENSIVE METABOLIC PANEL+C.LAB.BRZ ordered. EDMS EDMS 01:20 01:20 LIPASE+C.LAB.BRZ ordered. EDMS EDMS 01:27 01:27 NS 0.9% IV 250 ml IV at bolus once; to be given as a bolus over 30 minutes sp4 ordered. sp4 01:46 01:27 NS 0.9% IV 1000 ml IV at 1 bolus Per protocol; to be given as a bolus over 60 bm8 minutes ordered. sp4
[2024-07-01 03:41] VITALS: BP 131/87; TEMP 98.7; O2SAT 99
== END 2024-07-01 03:31 | disposition home or self-care (01) ==
LOC: ER 00:48
DX: B33.8 Other specified viral diseases (principal); B34.9 Viral infection, unspecified
CPT/HCPCS: 96361; 85025; 36415; 83690; 80053; 87804 ×2; 96374; 99284; Q0169; J2405; J7030

== ENCOUNTER 2024-07-14 09:34 | Emergency (ER) | payer OTHER ==
[2024-07-14 10:14] LABS: Absolute Basophils 0.1 K/uL (0-0.5); Absolute Eosinophils 0.1 K/uL (0-0.5); Absolute Lymphocytes (CBC) 2.4 K/uL (0.7-4.9); Absolute Neutrophil 6.4 K/uL (1.8-8.0); Basophils % 0.8 % (0-1.3); Eosinophils % 1.3 % (0-4.4); Hematocrit 39.5 % (39.6-49.0); Hemoglobin 12.9 g/dL (13.6-17.9); Lymphocytes % 24.5 % (15.3-44.8); MCH 27.5 pg (27.0-35.0); MCHC 32.6 g/dL (32.0-36.0); MCV 84.3 fL (80-100); MPV 10.2 fL (7.6-11.3); Monocytes % 9.7 % (3.3-12.3); Neutrophils % 63.7 % (41.7-73.7); Nucleated Red Blood Cells % 0.2 % (0-0); Platelets 209 thou/uL (152-406); RBC Red Blood Cell Count 4.68 M/uL (4.33-5.43); Red Cell Distribution Width 13.1 % (12.1-15.2)
[2024-07-14] MEDS ORDERED: NA CHLORIDE 0.9% 1,000 ML ONE (10:20)
[2024-07-14] MEDS ORDERED: MORPHINE 4 MG/ML SYR ONE (10:31)
[2024-07-14] MEDS ORDERED: ONDANSETRON 4 MG/2 ML VIAL ONE (10:31)
[2024-07-14 10:37] LABS: Anion Gap 7.4 mEq/L (5.0-15.0); Potassium 3.4 mEq/L (3.5-5.1)
[2024-07-14 10:38] LABS: Albumin 3.2 g/dL (3.4-5.0); Albumin/Globulin Ratio 0.8 (1.1-1.8); Bilirubin Total 0.4 mg/dL (0.2-1.0); Globulin 3.8 g/dL (2.3-3.5); Troponin High Sensitivity 16.1 pg/mL (<58.9)
--- NOTE | 2024-07-14 10:57 | RAD REPORT ---
EXAMINATION: ONE VIEW CHEST XR CLINICAL INDICATION: CHEST PAIN TECHNIQUE: Frontal chest projection is submitted. Examination is limited by patient positioning and t echnique. COMPARISON: 10/27/2021 FINDINGS: The lungs are well inflated and clear. The heart is normal in size. No displaced fractures identified . IMPRESSION: No acute intrathoracic abnormalities.
--- NOTE | 2024-07-14 11:41 | RAD REPORT ---
EXAMINATION: CT ABDOMEN AND PELVIS WITH CONTRAST CLINICAL INDICATION: ABD PAIN TECHNIQUE: CT abdomen and pelvis was performed, after the administration of IV contrast, as [facility]. Axial, sagittal and coronal reconstructions were obtained. One or more of the following dose reduction techniques were used: Automated exposure control, adjustment of the mA and k V according to patient size, and iterative reconstruction. Unless otherwise specified, incidental findings do not require dedicated imaging follow-up. COMPARISON: 07/24/2022, 12/18/2021 FINDINGS: LOWER CHEST: The visualized lung bases are clear. Small hiatal hernia. LIVER: Mild fatty liver is present. No focal lesion or biliary dilatation is seen. Grossly unremark able gallbladder. SPLEEN: Normal size. No focal lesion. PANCREAS: No mass, ductal dilation, or lexx-pancreatic fluid. ADRENALS: Normal; no mass. KIDNEYS: Normal size and contour. No hydronephrosis. GASTROINTESTINAL TRACT: Multiple mildly prominent small bowel loops are seen in the upper abdomen tow ards the left suggesting a nonspecific localized ileus. No bowel obstruction or free air. Short segment inflammation involves sigmoid colon the left lower quadrant measuring 4 cm. Several diverticu la are present in the region. APPENDIX: Normal appendix. LYMPH NODES: No lymphadenopathy. MUSCULOSKELETAL: No acute or suspicious osseous abnormality. IMPRESSION: 4 cm length of sigmoid colon in the left lower quadrant for several diverticula are present shows mil d to moderate surrounding inflammation. This likely represents acute diverticulitis. After appropriate therapy, it is recommended the patient undergo colonoscopy for direct visualization of th is region and to exclude underlying mass.
--- NOTE | 2024-07-14 12:16 | ER ---
Nurse's Notes [facility] Name: Ricky Mercer Jr Age: 49 yrs Sex: Male : 1975 Arrival Date: 07/14/2024 Time: 09:34 Bed 17 Private MD: Diagnosis: Diverticulitis of intestine, part unspecified, without perforation or abscess without bleeding Presentation: 07/14 09:53 Chief complaint: LLQ pain x 2 days. Denies N/V/D. Hx of diverticulitis. Coronavirus hb screen: At this time, the client does not indicate any symptoms associated with coronavirus-19. Ebola Screen: No symptoms or risks identified at this time. Initial Sepsis Screen: Does the patient meet any 2 criteria? No. Patient's initial sepsis screen is negative. Does the patient have a suspected source of infection? No. Patient's initial sepsis screen is negative. Risk Assessment: Do you want to hurt yourself or someone else? Patient reports no desire to harm self or others. Onset of symptoms was July 13, 2024. 09:53 Method Of Arrival: Ambulatory hb 09:53 Acuity: LIZA 3 hb Historical: - Allergies: 09:54 Rocephin; hb - Home Meds: 09:54 None [Active]; hb - PMHx: 09:54 Diverticulitis; hb - PSHx: 09:54 r leg; hb - Immunization history:: Adult Immunizations up to date. - Infectious Disease History:: Denies. - Social history:: Smoking status: Patient denies any tobacco usage or history of. Screenin:55 [facility] ED Fall Risk Assessment (Adult) History of falling in the last 3 months, hb including since admission No falls in past 3 months (0 pts) Confusion or Disorientation No (0 pts) Intoxicated or Sedated No (0 pts) Impaired Gait No (0 pts) Mobility Assist Device Used No (0 pt) Altered Elimination No (0 pt) Score/Fall Risk Level 0 - 2 = Low Risk Oriented to surroundings, Maintained a safe environment, Educated pt \T\ family on fall prevention, incl call for assistance when getting out of bed. Abuse screen: Denies threats or abuse. Denies injuries from another. Nutritional screening: No deficits noted. Tuberculosis screening: No symptoms or risk factors identified. Assessment: 10:30 General: Appears uncomfortable, Behavior is calm, cooperative. Pain: Complains of pain aa5 in left lower quadrant Pain currently is 8 out of 10 on a pain scale. Quality of pain is described as sharp, Pain began 1 day ago. Is continuous. Neuro: Level of Consciousness is awake, alert, obeys commands, Oriented to person, place, time, situation. Cardiovascular: Patient's skin is warm and dry. Respiratory: Airway is patent Respiratory effort is even, unlabored, Respiratory pattern is regular, symmetrical. GI: Abdomen is round Bowel sounds present X 4 quads. Abdomen is tender to palpation in left lower quadrant Patient currently denies diarrhea, nausea, vomiting. : No signs and/or symptoms were reported regarding the genitourinary system. EENT: No signs and/or symptoms were reported regarding the EENT system. Derm: Skin is dry, Skin is normal, Skin temperature is warm. Musculoskeletal: Range of motion: intact in all extremities. 11:14 Reassessment: Pt to CT scan . aa5 12:43 Reassessment: Patient appears in no apparent distress at this time. Patient and/or jb4 family updated on plan of care and expected duration. Pain level reassessed. Patient is alert, oriented x 3, equal unlabored respirations, skin warm/dry/pink. Vital Signs: 09:53 BP 143 / 103; Pulse 88; Resp 16; Temp 98.7; Pulse Ox 100% on R/A; Weight 111.13 kg; hb Height 5 ft. 8 in. ; Pain 8/10; 12:43 BP 139 / 94; Pulse 67; Resp 16; Pulse Ox 97% on R/A; jb4 09:53 Body Mass Index 37.25 (111.13 kg, 172.72 cm) hb 09:53 Pain Scale: Adult hb ED Course: 09:36 Patient arrived in ED. im 09:37 Hilaria Jones FNP-C is PHCP. kb 09:37 Costa Garces MD is Attending Physician. kb 09:54 Triage completed. hb 09:55 Arm band placed on. hb 10:10 Rosy Butts, SHIRA is Primary Nurse. aa5 10:24 Troponin High Sensitivity Sent. cc6 10:24 CMP Sent. cc6 10:24 Lipase Sent. cc6 10:30 Patient has correct armband on for positive identification. Call light in reach. Side aa5 rails up X2. Pulse ox on. NIBP on. 10:43 Chest Single View XRAY In Process Unspecified. EDMS 10:50 EKG done, by ED staff, reviewed by Hilaria THORPE. aa5 11:30 CT Abd/Pelvis - IV Contrast Only In Process Unspecified. EDMS 12:00 Report given to Abhijit Friedman RN. aa5 12:27 No provider procedures requiring assistance completed. aa5 12:43 Provided Education on: discharge instructions.. jb4 12:43 IV discontinued, intact, bleeding controlled, No redness/swelling at site. Pressure jb4 dressing applied. Administered Medications: 10:36 Drug: NS 0.9% IV 1000 ml IV at 1 bolus Per protocol; to be given as a bolus over 60 aa5 minutes Route: IV; Rate: 1 bolus; Site: left antecubital; 10:36 Drug: morphine IVP or IV 4 mg IVP once over 4 mins Route: IVP; Infused Over: 4 mins; aa5 Site: left antecubital; 12:43 Follow up: Response: No adverse reaction jb4 10:36 Drug: Ondansetron IVP 4 mg IVP once; over 2 minutes Route: IVP; Site: left antecubital; aa5 12:43 Follow up: Response: No adverse reaction jb4 12:40 Drug: Ciprofloxacin PO 500 mg PO once Route: PO; jb4 12:42 Follow up: Response: Medication administered at discharge. jb4 12:41 Drug: metroNIDAZOLE PO 500 mg PO once Route: PO; jb4 12:42 Follow up: Response: Medication administered at discharge. jb4 Medication: 12:43 VIS not applicable for this client. jb4 Outcome: 12:16 Discharge ordered by . tom 12:43 Discharged to home ambulatory, jb4 12:43 Condition: stable 12:43 Discharge instructions given to patient, Instructed on discharge instructions, follow up and referral plans. medication usage, Demonstrated understanding of instructions, follow-up care, medications, Prescriptions given X 4, 12:45 Patient left the ED. jb4 Signatures: Dispatcher [employer] EDMS Hilaria Jones FNP-C FNP-Rosy Toro RN RN aa5 Yamileth Menchaca RN RN Abhijit Grimes RN RN jb4 Paola Chan Cassandra cc6
--- NOTE | 2024-07-14 12:16 | EDPHYS ---
Physician Documentation [facility] – [place], [place] Name: Ricky Mercer Jr Age: 49 yrs Sex: Male : 1975 Arrival Date: 07/14/2024 Time: 09:34 Bed 17 Private MD: ED Physician Costa Garces HPI: 07/14 09:38 This 49 yrs old Black Male presents to ER via Unassigned with complaints of Abdominal kb Pain. 09:38 Pt is a 49 year old male who presents for left lower quadrant pain that is worse with kb movement that started 2 days ago. Denies fever, n/v/d, urinary symptoms. Reports history of diverticulitis, but this feels different. Historical: - Allergies: 09:54 Rocephin; hb - Home Meds: 09:54 None [Active]; hb - PMHx: 09:54 Diverticulitis; hb - PSHx: 09:54 r leg; hb - Immunization history:: Adult Immunizations up to date. - Infectious Disease History:: Denies. - Social history:: Smoking status: Patient denies any tobacco usage or history of. ROS: 09:39 Constitutional: As per HPI kb Exam: 09:39 Constitutional: This is a well developed, well nourished patient who is awake, alert, kb and in no acute distress. Head/Face: Normocephalic, atraumatic. ENT: Moist Mucous membranes Cardiovascular: Regular rate Respiratory: Respirations even and unlabored. No increased work of breathing. Talking in full sentences Back: No spinal tenderness. No costovertebral tenderness. Full range of motion. Skin: Warm, dry with normal turgor. Normal color. MS/ Extremity: Pulses equal, no cyanosis. Neurovascular intact. Full, normal range of motion. Neuro: Awake and alert, GCS 15, oriented to person, place, time, and situation. 09:39 Abdomen/GI: Inspection: abdomen appears normal, Bowel sounds: normal, Palpation: soft, in all quadrants, moderate abdominal tenderness, in the left lower quadrant, 10:50 ECG was reviewed by the Attending Physician. kb Vital Signs: 09:53 BP 143 / 103; Pulse 88; Resp 16; Temp 98.7; Pulse Ox 100% on R/A; Weight 111.13 kg; hb Height 5 ft. 8 in. ; Pain 8/10; 12:43 BP 139 / 94; Pulse 67; Resp 16; Pulse Ox 97% on R/A; jb4 09:53 Body Mass Index 37.25 (111.13 kg, 172.72 cm) hb 09:53 Pain Scale: Adult hb MDM: 09:37 Medical Screening Exam initiated kb 09:43 ED course: During exam, pt states his chest started hurting. States he has had coughing kb and sneezing over the last few days and his chest has been hurting with cough. . 12:14 Differential diagnosis: non-specific abd pain, Ureterolithiasis, urinary tract kb infection, diverticulitis. Data reviewed: vital signs, nurses notes. Consideration of Admission/Observation Escalation of care including admission/observation considered. admission considered but vss, wbc normal. Discussed admission vs outpatient antibiotics with pt. Pt prefers to try outpatient oral antibiotics and return for worsening symptoms. . Counseling: I had a detailed discussion with the patient and/or guardian regarding the historical points, exam findings, and any diagnostic results supporting the discharge/admit diagnosis, lab results, radiology results, the need for outpatient follow up, a family practitioner, to return to the emergency department if symptoms worsen or persist or if there are any questions or concerns that arise at home. 07/14 09:42 Order name: CBC with Diff; Complete Time: 10:18 kb 07/14 09:42 Order name: CMP kb 07/14 09:42 Order name: Lipase kb 07/14 09:42 Order name: Troponin High Sensitivity kb 07/14 09:42 Order name: CT Abd/Pelvis - IV Contrast Only; Complete Time: 11:42 kb 07/14 09:42 Order name: Chest Single View XRAY; Complete Time: 10:58 kb 07/14 09:42 Order name: IV Saline Lock; Complete Time: 10:10 kb 07/14 09:42 Order name: Labs collected and sent; Complete Time: 10:11 kb 07/14 09:42 Order name: EKG - Nurse/Tech; Complete Time: 11:14 kb EC:50 Rate is 72 beats/min. Rhythm is regular. QRS [place] is Normal. FL interval is normal at kb 126 msec. QRS interval is normal at 76 msec. QT interval is normal at 416 msec. Administered Medications: 10:36 Drug: NS 0.9% IV 1000 ml IV at 1 bolus Per protocol; to be given as a bolus over 60 aa5 minutes Route: IV; Rate: 1 bolus; Site: left antecubital; 10:36 Drug: morphine IVP or IV 4 mg IVP once over 4 mins Route: IVP; Infused Over: 4 mins; aa5 Site: left antecubital; 12:43 Follow up: Response: No adverse reaction jb4 10:36 Drug: Ondansetron IVP 4 mg IVP once; over 2 minutes Route: IVP; Site: left antecubital; aa5 12:43 Follow up: Response: No adverse reaction jb4 12:40 Drug: Ciprofloxacin PO 500 mg PO once Route: PO; jb4 12:42 Follow up: Response: Medication administered at discharge. jb4 12:41 Drug: metroNIDAZOLE PO 500 mg PO once Route: PO; jb4 12:42 Follow up: Response: Medication administered at discharge. jb4 Disposition Summary: 07/14/24 12:16 Discharge Ordered Notes: Location: Home kb Condition: Stable kb Diagnosis - Diverticulitis of intestine, part unspecified, without perforation or abscess kb without bleeding Followup: kb - With: Emergency Department - When: As needed - Reason: Worsening of condition Followup: kb - With: Private Physician - When: 2 - 3 days - Reason: Recheck today's complaints, Continuance of care, Re-evaluation by your physician Discharge Instructions: - Discharge Summary Sheet kb - Diverticulitis, [id number] kb Forms: - Medication Reconciliation Form kb - Antibiotic Education kb - Prescription Opioid Use kb - Patient Portal Instructions kb - Leadership Thank You Letter kb Prescriptions: - Flagyl 500 mg Oral Tablet - take 1 tablet ORAL route every 8 hours for 10 days; 30 tablet; Refills: 0, kb Product Selection Permitted - Zofran 4 mg Oral tablet - take 1 tablet ORAL route every 6 hours As needed; 12 tablet; Refills: 0, kb Product Selection Permitted - Cipro 500 mg Oral tablet - take 1 tablet ORAL route every 12 hours for 10 days; 20 tablet; Refills: 0, kb Product Selection Permitted - Diclofenac Sodium 75 mg Oral tablet, delayed release (enteric coated) - take 1 tablet ORAL route 2 times per day As needed; 30 tablet; Refills: 0, kb Product Selection Permitted Signatures: Dispatcher [employer] Hilaria Shukla FNP-C FNP-Rosy Toro, RN RN aa5 Yamileth Menchaca, SHIRA RN hb Abhijit Grimes, RN RN jb4 Corrections: (The following items were deleted from the chart) 09: Abdomen Pelvis W Con+CT.RAD.BRZ ordered. EDMS EDMS : Chest Single View+RAD.RAD.BRZ ordered. EDMS EDMS
[2024-07-14] MEDS ORDERED: metroNIDAZOLE 500 MG TABLET ONE (12:28)
[2024-07-14] MEDS ORDERED: CIPROFLOXACIN HCL 500 MG TAB ONE (12:29)
[2024-07-14 12:50] VITALS: TEMP 98.7
[2024-07-14 12:52] VITALS: BP 139/94; O2SAT 97
== END 2024-07-14 12:45 | disposition home or self-care (01) ==
LOC: ER 09:34
DX: K57.32 Diverticulitis of large intestine without perforation or abscess without bleeding (principal)
CPT/HCPCS: 93005; 85025; 36415; 84484; 83690; 80053; 74177; 71045; 96375; 96374; 99284; Q9967; J2405; J7030